=== PATIENT | male | born 1980 | race Caucasian/White ===

== ENCOUNTER 2024-05-12 09:26 | Emergency (ER) | payer OTHER, SELFPAY ==
[2024-05-12] VITALS (8 sets, daily range): BP systolic 131–152; BP diastolic 73–92; PULSE 61–76; RESP 10–17; TEMP 36.4–36.8; O2SAT 98–100
--- NOTE | ~2024-05-12 | XR_ITS ---
Clinical Indication: Chest pain PA and lateral views of the chest: Comparison: None Findings: Possible 1 cm nodule right midlung. Left lung clear. Cardiomediastinal silhouette is within normal limits. Bones and soft tissues are unremarkable. Impression: Possible 1 cm right midlung pulmonary nodule. Chest CT recommended to further evaluate. Reviewed, dictated and finalized at location . TYPEWRITER INSTALLER Impression: Possible 1 cm right midlung pulmonary nodule. Chest CT recommended to further e valuate.
--- NOTE | ~2024-05-12 | CT_ITS ---
Clinical Indication: Pulmonary nodule CT Scan of the Chest with Contrast: Technique: Contiguous sections were acquired throughout the chest after intravenous administration of 75 cc of Omnipaque 350. Dose reduction technique was used on this scan by utilizing automated exposu re control and iterative reconstruction technique. The dose-length product (DLP) was 395.35 mGy-cm. Findings: There is no evidence of any significant mediastinal, hilar or axillary lymphadenopathy. There is no f illing defect in the pulmonary arterial tree to suggest pulmonary embolus. There is no evidence of ao rtic dissection or aneurysm. There is no evidence of pleural or pericardial effusion. Large calcified right lower lobe granuloma present, which probably correlates with the radiographic f inding from earlier chest x-ray. No other pulmonary abnormalities seen. Images through the upper abdomen reveal no abnormalities. Impression: Calcified right lower lobe granuloma which correlates with plain radiographic finding. Reviewed, dictated and finalized at [facility]. STERED RADIATION THERAPIST Impression: Calcified right lower lobe granuloma which correlates with plain radiographic f inding.
--- NOTE | 2024-05-12 09:27 | ECG_ITS ---
Test Date: 2024-05-12 09:34:46 Measurements Intervals [place] Rate: 67 P: 56 NH: 140 QRS: 15 QRSD: 85 T: 22 QT: 369 QTc: 392 Interpretive Statements SINUS RHYTHM No previous ECG available for comparison Electronically Signed On 05-12-2024 22:46:56 FEEDER TENDER by Julian Hastings M.D.
[2024-05-12 10:00] LABS: Basophils Percent Auto 0.7 % (0.2-1.2); Eosinophils Absolute Auto 0.1 K/mm3 (0-0.3); Eosinophils Percent Auto 1.7 % (0-4.4); Hematocrit 47.1 % (42.0-52.0); Hemoglobin 16.4 g/dL (14.0-18.0); Immature Granulocyte Absolute 0.03 K/mm3 (0.00-0.031); Immature Granulocyte Percent A 0.5 % (0-0.5); Immature Platelet Fraction Pct 8.8 % (0.9-11.2); Lymphocytes Absolute Auto 1.89 K/mm3 (0.9-3.2); Lymphocytes Percent Auto 32.5 % (18.3-44.2); Mean Corpuscular HGB Conc 34.8 g/dl (32-36); Mean Corpuscular Hemoglobin 29.1 pg (26-34); Mean Corpuscular Volume 83.7 fl (80-100); Mean Platelet Volume 10.5 fl (7.4-10.4); Monocytes Absolute Auto 0.4 K/mm3 (0.1-0.6); Monocytes Percent Auto 7.4 % (2.6-8.5); Neutrophils Absolute Auto 3.3 K/mm3 (1.3-6.7); Neutrophils Percent Auto 57.2 % (45.5-73.1); Red Blood Count 5.63 M/mm3 (4.6-6.20); Red Cell Distribution Width 12.4 % (11.5-14.5); White Blood Count 5.8 K/mm3 (4.5-10.0)
[2024-05-12 10:09] LABS: Alanine Aminotransferase 32 U/L (6-50); Albumin Level 4.5 g/dL (3.5-5.1); Alkaline Phosphatase 53 U/L (38-126); Anion Gap 4 mmol/L (4-12); Aspartate Amino Transferase 24 U/L (17-59); Bilirubin,Total 0.5 mg/dL (0.2-1.3); Blood Urea Nitrogen 16 mg/dL (9-20); Calcium 9.3 mg/dL (8.4-10.2); Carbon Dioxide 26 mmol/L (22-30); Chloride 107 mmol/L (98-107); Estimated CRCL calculation 102 ml/min; Estimated Glomerular Filt Rate > 60; Glucose 116 mg/dL (65-110); Lipase 57 U/L (23-300); Potassium 4.2 mmol/L (3.4-5.0); Sodium 137 mmol/L (137-145)
[2024-05-12 10:14] LABS: INR 0.9; Prothrombin Time 12.9 Seconds (11.1-14.7)
[2024-05-12 10:15] LABS: Partial Thromboplastin Time 27.9 Seconds (22.3-36.8)
[2024-05-12 10:20] LABS: Troponin I < 0.012 ng/mL (0.000-0.034)
--- NOTE | 2024-05-12 11:13 | ED_ITS ---
HPI - Chest Pain General Chief Complaint: Chest Pain Stated Complaint: L chest discomfort Time Seen by Provider: 05/12/24 11:02 Source: patient Mode of arrival: ambulatory Limitations: no limitations History of Present Illness HPI narrative: Patient presents with left chest pain/discomfort that he noticed upon awakening at 5:00 a.m. this morning. He describes as a tightness that is 2 or 3/10 in severity and occurring intermittently without radiating although he was having some pain in his left armpit earlier this week. Denies any shortness of breath, nausea, vomiting, diaphoresis, lower extremity edema. He states this has never happened before and he does not have any underlying cardiac or respiratory conditions. Does not follow regularly with a document imaging manager. In terms of risk factors, denies any history of hypertension, hyperlipidemia, myocardial infarction, TIA/CVA or diabetes mellitus. He is a former smoker though quit 13 years ago at the of his daughter. He does have a family history as below. Related Data Allergies Allergy/AdvReac Type Severity Reaction Status Date / Time No Known Allergies Allergy Mild Verified 05/12/24 09:33 [facility] Family History Family History (Updated 05/13/24 @ 06:53 by Donna Jacques MD) Father Acute myocardial infarction Social History Social History Smoking status: Former smoker Living arrangements: with family Additional living arrangements comments: Spouse and teenage daughter Exam 2 Narrative: GENERAL: Well-appearing, well-nourished, and in no acute distress. HEAD: Normocephalic, atraumatic. EYES: Non injected, non icteric ENT: Nares clear, no rhinorrhea or epistaxis. NECK: Supple. CHEST: Speaking in full sentences. No respiratory distress. Lungs clear to auscultation bilaterally without appreciable wheezes or crackles HEART: Regular rate and rhythm. . ABDOMEN: Soft, nondistended. EXTREMITIES: Normal range of motion. No lower extremity edema. SKIN: Warm, dry, no rash. NEURO: No focal deficits. Alert and oriented x3. PSYCH: Normal mood and affect. Course Vital Signs Vital signs: Vital Signs Temperature 97.6 F 05/12/24 09:29 Pulse Rate 65 05/12/24 09:29 Respiratory Rate 15 05/12/24 09:29 Blood Pressure 150/92 H 05/12/24 09:29 Pulse Oximetry 100 05/12/24 09:29 Oxygen Delivery Room Air 05/12/24 09:29 Temperature 98.2 F 05/12/24 14:23 Pulse Rate 67 05/12/24 14:23 Respiratory Rate 17 05/12/24 14:23 Blood Pressure 152/73 H 05/12/24 14:23 Pulse Oximetry 100 05/12/24 14:23 Oxygen Delivery Room Air 05/12/24 09:29 MDM - Chest Pain MDM Narrative Medical decision making narrative: Patient presents with left sided chest pain/discomfort occurring upon awakening at 5:00 a.m. this morning. Describes it as a tightness. No underlying cardiac or respiratory conditions and no associated symptoms on review of symptoms other than he was having some left armpit pain earlier this week. In the emergency department he is afebrile with vital signs notable for mild hypertension. HEART SCORE History 2 highly suspicious 1 moderately suspicious 0 slightly suspicious History score [address] depression/elevation not due to LBBB, LVH, or digoxin [address] depression but LBBB, LVH, nonspecific repolarization changes 0 normal ECG score 0 Age 2 >/= 65 1 45-64 0 <45 Age score 0 Risk factors (HTN, hypercholesterolemia, DM, obesity with BMI >30, current smoker or cessation </=3mo), positive fam hx with parent or sibling with CVD before age 65, atherosclerotic disease (prior RI, PCI/CABG, CVA/TIA, or peripheral arterial disease) 2 >/= 3 risk factors or history of atherosclerotic dz 1 - 1-2 risk factors 0 no known risk factors Risk factor score 2 (obesity and fam Hx) Initial Troponin 2 >3 times normal limit 1 1-3 times normal limit 0 less than or equal to normal limit Troponin score 0 Total HEART Score 3 with 2nd negative troponin. Patient is suitable for outpatient follow-up we discussed that his negative workup does not mean that there is nothing wrong but rather that he should follow-up as indicated. CT scan shows a calcified granuloma in the right lower lung. Discussed this with patient. Discharged in stable condition with Rx for acetaminophen and NSAID. Provided referral contact information for a PCP (though patient later states he has access to a physician through his work) and document imaging manager. Differential Diagnosis Differential diagnosis: Likely stable angina, unstable angina pectoris, atypical chest pain, st elevation myocardial infarction, chest pain, biliary colic and other (musculoskeletal pain) Lab Data Attestation: I reviewed the patient's lab results. 05/12/24 09:52 05/12/24 09:52 Labs: Lab Results 05/12/24 05/12/24 Range/Units 09:52 12:20 WBC 5.8 (4.5-10.0) K/mm3 RBC 5.63 (4.6-6.20) M/mm3 Hgb 16.4 (14.0-18.0) g/dL Hct 47.1 (42.0-52.0) % MCV 83.7 (80-100) fl MCH 29.1 (26-34) pg MCHC 34.8 (32-36) g/dl RDW 12.4 (11.5-14.5) % Plt Count TNP MPV 10.5 H (7.4-10.4) fl Immature Gran % (Auto) 0.5 (0-0.5) % Neut % (Auto) 57.2 (45.5-73.1) % Lymph % (Auto) 32.5 (18.3-44.2) % [place] % (Auto) 7.4 (2.6-8.5) % Eos % (Auto) 1.7 (0-4.4) % Baso % (Auto) 0.7 (0.2-1.2) % Lymph # (Auto) 1.89 (0.9-3.2) K/mm3 [place] # (Auto) 0.4 (0.1-0.6) K/mm3 Eos # (Auto) 0.1 (0-0.3) K/mm3 Baso # (Auto) 0.0 (0.0-0.1) K/mm3 Abs Immat Gran (auto) 0.03 (0.00-0.031) K/mm3 Absolute Neuts (auto) 3.3 (1.3-6.7) K/mm3 Absolute Nucleated RBC 0.000 (0.0-0.012) K/mm3 Nucleated RBC % 0.0 (0.0-0.2) % % Immature Plt Fraction 8.8 (0.9-11.2) % PT 12.9 (11.1-14.7) Seconds INR 0.9 APTT 27.9 (22.3-36.8) Seconds D-Dimer < 0.27 (<0.48) ug/mL Sodium 137 (137-145) mmol/L Potassium 4.2 (3.4-5.0) mmol/L Chloride 107 (98-107) mmol/L Carbon Dioxide 26 (22-30) mmol/L Anion Gap 4 (4-12) mmol/L BUN 16 (9-20) mg/dL Creatinine 0.90 (0.7-1.3) mg/dL Estim Creat Clear Calc 102 ml/min Estimated GFR > 60 (59 - ) Glucose 116 H (65-110) mg/dL Calcium 9.3 (8.4-10.2) mg/dL Total Bilirubin 0.5 (0.2-1.3) mg/dL AST 24 (17-59) U/L ALT 32 (6-50) U/L Alkaline Phosphatase 53 (38-126) U/L Troponin I < 0.012 < 0.012 (0.000-0.034) ng/mL Total Protein 8.0 (6.3-8.2) g/dL Albumin 4.5 (3.5-5.1) g/dL Lipase 57 (23-300) U/L Imaging Data Radiologist's impression: Possible 1 cm right midlung pulmonary nodule. Chest CT recommended to further evaluate. Calcified right lower lobe granuloma which correlates with plain radiographic finding. ECG Data EKG #1: Attestation: I personally reviewed and interpreted this ECG as follows: ECG completion date: 05/12/24 ECG completion time: 09:34 Interpretation: Normal sinus rhythm at a rate of 67 beats per minute. FL interval 140. QRS 85. QT/QTC 369/385. Good R-wave progression across the precordial leads. T-wave inversion isolated to lead 3 but otherwise upright in normal in contiguous inferior leads 2 and AVF and no other T-wave inversions. Normal axis. Normal ECG. Discharge Plan Discharge Clinical Impression: Chest pain in adult, Calcified granuloma of lung Patient Disposition: Home, Self-Care Condition: Stable Instructions: Antibiotic Form, Chest Pain (ED) Additional Instructions: As we discussed, no clear etiology for your symptoms today however you are otherwise low risk and thus the recommendation is to proceed with outpatient workup. Follow-up with your primary care physician for referral to a document imaging manager or alternatively, the name of 1 is provided below. If you do not have a primary care physician the name of doctors provided below. Return to the emergency department any new or worsening symptoms. Acetaminophen/Tylenol (maximum 4000 mg per day) is safe to take with NSAIDs (ibuprofen/Motrin) for pain relief. The nodule that we discussed that was seen on your x-ray appears to be a calcified granuloma on CT imaging. Patient Language: Polish Prescriptions: New ibuprofen 600 mg tablet 600 mg PO TID PRN (Reason: pain) Qty: 20 0RF acetaminophen 500 mg capsule 1,000 mg PO Q6H PRN (Reason: pain) Qty: 20 0RF Follow-up/Referrals: Avril Williamson MD [Physician] - (document imaging manager) PHYSICIAN,SPOOL CARRIER [Non-Staff] - Tyrell Morris MD [Physician] - (primary care physician) Stand Alone Forms: Work/School Release IP Time of Disposition: 13:55
--- NOTE | 2024-05-12 12:15 | ECG_ITS ---
Test Date: 2024-05-12 12:18:55 Measurements Intervals [place] Rate: 67 P: 58 FL: 143 QRS: 23 QRSD: 79 T: 29 QT: 377 QTc: 400 Interpretive Statements SINUS RHYTHM WITH SINUS ARRHYTHMIA Compared to ECG 05/12/2024 09:34:46 No significant changes Electronically Signed On 05-12-2024 22:43:59 LITHOGRAPHIC GENERAL WORKER by Julian Hastings M.D.
[2024-05-12 12:23] LABS: D Dimer < 0.27 ug/mL (<0.48)
[2024-05-12 12:51] LABS: Troponin I < 0.012 ng/mL (0.000-0.034)
--- OUTSIDE RECORDS SUMMARY | 2024-05-19 16:55 | XMS_ITS | Encounter Summary ---
Author Organization [facility] Address [address] [place] [address] Care Team Providers Care Biztalk Administrator Name Role Phone Katerina Eng MD Primary Care Provider [phone] Encounter Details Date Type Department Care Team (Late st Contact Info) Description 05/14/2023 External Device Data [place] ABSTRACTION Provider, Abstract NO ADDRESS ON FILE Social History Tobacco Use Types Packs/Day Years Used Date Smoking Tobacco: Never Smokeless Tobacco: Never Alcohol Use Standard Drinks/Week Comments Yes 3 (1 standard drink = 0.6 oz pur e alcohol) occasional Sex and Gender Information Value Date Recorded Sex Assigned at Not on file Gender Identity Not on file Sexual Orientation Not on file documented as of this encounter Plan of Treatment Not on file documented as of this encounter Visit Diagnoses Not on filedocumented in this encounter Care Teams Biztalk Administrator Relationship Specialty Start Date End Date Katerina Eng MD [address] [place] [phone] PCP - General Family Practice 08/28/22 documented as of this encounter
--- OUTSIDE RECORDS SUMMARY | 2024-05-19 16:55 | XMS_ITS | Encounter Summary ---
Author Organization [facility] Address [address] [place] [address] Care Team Providers Care Political Geographer Name Role Phone Katerina Eng MD Primary Care Provider [phone] Encounter Details Date Type Department Care Team (Late st Contact Info) Description 07/01/2023 External Device Data STL ABSTRACTION Provider, Abstract [...] on filedocumented in this encounter Care Teams Political Geographer Relationship Specialty Start Date End Date Katerina Eng MD [address] [place] [phone] PCP - General Family Practice 08/28/22 documented as of this encounter
--- OUTSIDE RECORDS SUMMARY | 2024-05-19 16:55 | XMS_ITS | Encounter Summary ---
Author Organization [facility] Address [address] [place] [address] Care Team Providers Care Circuits Engineer Name Role Phone Katerina Eng MD Primary Care Provider [phone] Encounter Details Date Type Department Care Team (Late st Contact Info) Description 02/11/2024 External Device Data STL ABSTRACTION Provider, Abstract [...] on filedocumented in this encounter Care Teams Circuits Engineer Relationship Specialty Start Date End Date Katerina Eng MD [address] [place] [phone] PCP - General Family Practice 08/28/22 documented as of this encounter
--- OUTSIDE RECORDS SUMMARY | 2024-05-19 16:55 | XMS_ITS | Encounter Summary ---
Author Organization [facility] Address [address] [place] [address] Care Team Providers Care Seamer Panty Hose Name Role Phone Katerina Eng MD Primary Care Provider [phone] Encounter Details Date Type Department Care Team (Late st Contact Info) Description 01/21/2024 External Device Data STL ABSTRACTION Provider, Abstract [...] on filedocumented in this encounter Care Teams Seamer Panty Hose Relationship Specialty Start Date End Date Katerina Eng MD [address] [place] [phone] PCP - General Family Practice 08/28/22 documented as of this encounter
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
--- OUTSIDE RECORDS SUMMARY | 2024-05-19 16:55 | XMS_ITS | Clinical Summary ---
Author Organization [facility] [place] Address [address] [place] [address] Care Team Providers Care Cycling Instructor Name Role Phone Katerina Eng MD Primary Care Provider [phone] Allergies No known active allergies Medications Medication Sig Dispensed Refills Start Date End Date Status famotidine (PEPCID) 20 mg tablet Take 20 mg by mouth 1 time daily as needed. Active Active Problems No known active problems Family History Medical History Relation Name Comments No Known Problems Daughter Diabetes Father Dad Heart Disease Father Dad Kidney Disease Father Dad Heart Disease Maternal Grandfather Breast Cancer Maternal Grandmother Mothers Mom No Known Problems Mother No Known Problems Paternal Grandfather No Known Problems Paternal Grandmother No Known Problems Sister 1 Diabetes Sister 2 Relation Name Status Comments Daughter Alive Father Dad Alive Maternal Grandfather Maternal Grandmother Mothers Mom Mother Alive Paternal Grandfather Alive Paternal Grandmother Alive Sister 1 Alive Sister 2 Alive Social History Tobacco Use Types Packs/Day Years Used Date Smoking Tobacco: Never Smokeless Tobacco: Never Tobacco Cessation:Counseling Given: Not Answered Alcohol Use Standard Drinks/Week Comments Yes 3 (1 standard drink = 0.6 oz pur e alcohol) occasional Sex and Gender Information Value Date Recorded Sex Assigned at Not on file Gender Identity Not on file Sexual Orientation Not on file Last Filed Vital Signs Vital Sign Reading Time Taken Comments Blood Pressure 108/82 07/10/2023 10:38 AM MANAGER FIELD SALES Pulse 70 07/10/2023 10:38 AM MANAGER FIELD SALES Temperature 36.6 ??C (97.9 ??F) 07/10/2023 10:[address] Respiratory Rate 18 07/10/2023 10:38 AM MANAGER FIELD SALES Oxygen Saturation 98% 07/10/2023 10:38 AM MANAGER FIELD SALES Inhaled Oxygen Concentration - - Weight 100.2 kg (221 lb) 07/10/2023 10:38 AM MANAGER FIELD SALES Height 165.1 cm (5' 5 ) 07/10/2023 10:38 AM MANAGER FIELD SALES Body Mass Index 36.78 07/10/2023 10:38 AM MANAGER FIELD SALES Plan of Treatment Health Maintenance Due Date Last Done Comments DTAP/TDAP/TD VACCINES (1 - Tdap) 2001 HEPATITIS B VACCINES (1 of 3 - 19+ 3-dose series) 2001 Pre-Diabetes and Diabetes Screening 11/03/2023 11/02/2020, 01/01/2020 INFLUENZA VACCINE (#1) 2023 HPV VACCINES Aged Out No longer eligi ble based on patient's age to complete this topic PNEUMOCOCCAL VACCINE 0-64 YEARS Aged Out No longer eligible b ased on patient's age to complete this topic Procedures Procedure Name Priority Date/Time Associated Diagnosis Comments HEMOGLOBIN A1C Routine 11/02/2020 8:50 AM CDT Screening for condition from Last 3 Months or Most Recently Relevant to Health Maintenance Results * HEMOGLOBIN A1C (11/02/2020 8:50 AM CDT) HEMOGLOBIN A1C 4.8 <5.7 % of total Hgb [facility] Comment: For the purpose of screening for the presence of diabetes: <5.7% ? Consistent with the absence of diabetes 5.7-6.4% ?Consistent with increased risk for diabetes ?(prediabetes) > or =6.5% ??Consistent with diabetes This assay result is consistent with a decreased risk of diabetes. Currently, no consensus exists regarding use of hemoglobin A1c for diagnosis of diabetes in children. According to [place] Diabetes Association (ADA) guidelines, hemoglobin A1c <7.0% represents optimal control in non- diabetic patients. Different metrics may apply to specific patient populations. Standards of Medical Care in Diabetes(ADA). Test Performed at: [facility] [address] [place], [place] ??[address] Davian Vickers D.O., MPH Blood 11/02/2020 8:50 AM CDT Jt Vazquez MD CHEMISTRY ORDERABLES [facility] [address] [place] [address] from Last 3 Months or Most Recently Relevant to Health Maintenance Care Teams Cycling Instructor Relationship Specialty Start Date End Date Katerina Eng MD [address] [place] [phone] PCP - General Family Practice 08/28/22
--- OUTSIDE RECORDS SUMMARY | 2024-05-19 16:55 | XMS_ITS | Encounter Summary ---
Author Organization [facility] Address [address] [place] [address] Care Team Providers Care Drop Pit Worker Name Role Phone Katerina Eng MD Primary Care Provider Encounter Details Date Type Department Care Team (Late st Contact Info) Description 02/04/2024 External Device Data STL ABSTRACTION Provider, Abstract [...] on filedocumented in this encounter Care Teams Drop Pit Worker Relationship Specialty Start Date End Date Katerina Eng MD [address] [place] [phone] PCP - General Family Practice 08/28/22 documented as of this encounter
--- OUTSIDE RECORDS SUMMARY | 2024-05-19 16:55 | XMS_ITS | Encounter Summary ---
Author Organization [facility] Address [address] [place] [address] Care Team Providers Care Air Hole Driller Name Role Phone Katerina Eng MD Primary Care Provider [phone] Encounter Details Date Type Department Care Team (Late st Contact Info) Description 11/26/2023 External Device Data STL ABSTRACTION Provider, Abstract [...] on filedocumented in this encounter Care Teams Air Hole Driller Relationship Specialty Start Date End Date Katerina Eng MD [address] [place] [phone] PCP - General Family Practice 08/28/22 documented as of this encounter
--- OUTSIDE RECORDS SUMMARY | 2024-05-19 16:55 | XMS_ITS | Encounter Summary ---
Author Organization [facility] Address [address] [place] [address] Care Team Providers Care Senior Cost Accountant Name Role Phone Katerina Eng MD Primary Care Provider [phone] Reason for Visit * Reason Comments Labs Only Encounter Details Date Type Department Care Team (Latest Contact Info) Description 06/11/2023 8:20 AM HOME THEATRE TECHNICIAN Clinical Support [facility] at [facility] [employer]ANK[employer] [place] [address] [place] [address] Hypertriglyceridemia ; Elevated TSH Social History Tobacco Use Types Packs/Day Years Used Date Smoking Tobacco: Never Smokeless Tobacco: Never Alcohol Use Standard Drinks/Week Comments Yes 3 (1 standard drink = 0.6 oz pur e alcohol) occasional Sex and Gender Information Value Date Recorded Sex Assigned at Not on file Gender Identity Not on file Sexual Orientation Not on file documented as of this encounter Progress Notes * Tamie Enrique RN - 06/11/2023 8:52 AM CST Left hand successful, 1 stick. Pt tolerated well. THEATRE TECHNICIAN * Shwetha Hui - 06/11/2023 8:33 AM CST Pt presents for labs, Left AC unsuccessful 1 stick, Right AC unsuccessful 1 stick. Pt tolerated well. THEATRE TECHNICIAN documented in this encounter Plan of Treatment Not on file documented as of this encounter Procedures Procedure Name Priority Date/Time Associated Diagnosis Comments TSH Routine 06/11/2023 8:18 AM HOME THEATRE TECHNICIAN T4 FREE Routine 06/11/2023 8:18 AM HOME THEATRE TECHNICIAN Elevated TSH LIPID PANEL Routine 06/11/2023 8:18 AM HOME THEATRE TECHNICIAN Hypertriglyceridemia documented in this encounter Results * TSH (06/11/2023 8:18 AM HOME THEATRE TECHNICIAN) Pathologist [facility] TSH 2.14 0.40 - 4.50 mIU/L [facility] Comment: Test Performed at: [facility] [address] [place], [place] ??[phone] Nicolas Perla MD 06/11/2023 8:18 AM HOME THEATRE TECHNICIAN 06/11/2023 10:36 PM HOME THEATRE TECHNICIAN Jennifer Ba [facility] CHEMISTRY ORDERABLES Performing Organization Address City/[facility]/ZIP Co de Phone Number [facility] [phone] [facility] [address] [place] [phone] * T4 FREE (06/11/2023 8:18 AM HOME THEATRE TECHNICIAN) Pathologist [facility] T4 FREE 1.1 0.8 - 1.8 ng/dL [facility] Comment: Test Performed at: [facility] [address] [place] [address] ??[phone] Nicolas Perla MD Blood 06/11/2023 8:18 AM HOME THEATRE TECHNICIAN 06/11/2023 10:36 PM HOME THEATRE TECHNICIAN Jennifer Ba [facility] CHEMISTRY ORDERABLES [facility] [phone] [facility] [address] [place] [phone] * LIPID PANEL (06/11/2023 8:18 AM HOME THEATRE TECHNICIAN) Pathologist [facility] CHOLESTEROL 152 <200 mg/dL [facility] HDL 41 > OR = 40 mg/dL [facility] TRIGLYCERIDE 120 <150 mg/dL [facility] LDL CALCULATED 89 mg/dL (calc) [facility] Comment: Reference range: <100 Desirable range <100 mg/dL for primary prevention; ?? <70 mg/dL for patients with CHD or diabetic patients with > or = 2 CHD risk factors. LDL-C is now calculated using the Krissy calculation, which is a validated novel method providing better accuracy than the Friedewald equation in the estimation of LDL-C. Vazquez SS et al. JAIME. 2013;310(19): 4842-4143 (http://education.BMRW & Associates/faq/BTA854) CHOL/HDL RATIO 3.7 <5.0 (calc) [facility] TOTAL NON-HDL CHOL(LDL+VLDL) 111 <130 mg/dL (calc) [facility] Comment: For patients with diabetes plus 1 major ASCVD risk factor, treating to a non-HDL-C goal of <100 mg/dL (LDL-C of <70 mg/dL) is considered a therapeutic option. Test Performed at: [facility] [place] [address] [place], [place] ??[phone] Nicolas Perla Blood 06/11/2023 8:18 AM HOME THEATRE TECHNICIAN 06/11/2023 10:35 PM HOME THEATRE TECHNICIAN Jennifer Ba STRETCH BOX TENDER CHEMISTRY ORDERABLES [facility] [phone] [place] [address] [place] [phone] documented in this encounter Visit Diagnoses Diagnosis Hypertriglyceridemia Pure hyperglyceridemia Elevated TSH Other abnormal blood chemistry documented in this encounter Care Teams Senior Cost Accountant Relationship Specialty Start Date End Date Katerina Eng MD [address] [place] [address] PCP - General Family Practice 08/28/22 documented as of this encounter
--- OUTSIDE RECORDS SUMMARY | 2024-05-19 16:55 | XMS_ITS | Encounter Summary ---
Author Organization [facility] Address [address] [place] [address] Care Team Providers Care Press Technician Name Role Phone Katerina Eng MD Primary Care Provider [phone] Encounter Details Date Type Department Care Team (Late st Contact Info) Description 01/14/2024 External Device Data STL ABSTRACTION Provider, Abstract [...] on filedocumented in this encounter Care Teams Press Technician Relationship Specialty Start Date End Date Katerina Eng MD [address] [place] [phone] PCP - General Family Practice 08/28/22 documented as of this encounter
--- OUTSIDE RECORDS SUMMARY | 2024-05-19 16:55 | XMS_ITS | Encounter Summary ---
Author Organization [facility] Address [address] [place] [address] Care Team Providers Care Senior It Recruiter Name Role Phone Katerina Eng MD Primary Care Provider [phone] Encounter Details Date Type Department Care Team (Late st Contact Info) Description 06/28/2023 External Device Data STL ABSTRACTION Provider, Abstract [...] on filedocumented in this encounter Care Teams Senior It Recruiter Relationship Specialty Start Date End Date Katerina Eng MD [address] [place] [phone] PCP - General Family Practice 08/28/22 documented as of this encounter
--- OUTSIDE RECORDS SUMMARY | 2024-05-19 16:55 | XMS_ITS | Encounter Summary ---
Author Organization [facility] Address [address] [place] [phone] Care Team Providers Care Receipt And Report Clerk Name Role Phone Katerina Eng MD Primary Care Provider Reason for Visit * Reason Onset Date Comments Labs results and interpretations 06/19/2023 Encounter Details Date Type Department Care Team (Late st Contact Info) Description 06/19/[address] [address] Jennifer Ba FNP [address] [place] [address] Labs results and interpretations Social History Tobacco Use Types Packs/Day Years [...] on filedocumented in this encounter Care Teams Receipt And Report Clerk Relationship Specialty Start Date End Date Katerina Eng MD [address] [place] [address] PCP - General Family Practice 08/28/22 documented as of this encounter
--- OUTSIDE RECORDS SUMMARY | 2024-05-19 16:55 | XMS_ITS | Encounter Summary ---
Author Organization [facility] Address [address] [place] [address] Care Team Providers Care Retanner Name Role Phone Katerina Eng MD Primary Care Provider [phone] Reason for Visit * Reason Comments Labs Only Encounter Details Date Type Department Care Team (Latest Contact Info) Description 08/29/2023 10:00 AM CDT Clinical Support [facility] [place] [address] [place] [address] Screening for condition (Primary Dx) Social History Tobacco Use Types [...] as of this encounter Progress Notes * Bety Lemons - 08/29/2023 9:39 AM CDT Patient presents for labs only, drawn from left hand, one stick. Patient tolerated well. documented in this encounter Miscellaneous Notes * Result Encounter Note - Katerina Eng MD - 09/02/2023 12:00 PM CDT Metabolic panel is normal. documented in this encounter Plan of Treatment Not on file documented as of this encounter Procedures Procedure Name Priority Date/Time Associated Diagnosis Comments COMPREHENSIVE METABOLIC PANEL Routine 08/29/2023 9:30 AM CDT Screening for condition documented in this encounter Results * COMPREHENSIVE METABOLIC PANEL (08/29/2023 9:30 AM CDT) GLUCOSE 90 65 - 99 mg/dL [facility] Comment: ? Fasting reference interval BUN 14 7 - 25 mg/dL [facility] CREATININE 0.99 0.60 - 1.29 mg/dL [facility] GFR 98 > OR = 60 mL/min/1. 73m2 [facility] BUN/CREAT RATIO SEE NOTE: (calc) [facility] Comment: ?? Not Reported: BUN and Creatinine are within ?? reference range. ? SODIUM 137 135 - 146 mmol/L [facility] POTASSIUM 4.0 3.5 - 5.3 mmol/L [facility] CHLORIDE 103 98 - 110 mmol/L [facility] CO2 26 20 - 32 mmol/L [facility] CALCIUM 9.7 8.6 - 10.3 mg/dL [facility] TOTAL PROTEIN 7.4 6.1 - 8.1 g/dL [facility] ALBUMIN 4.7 3.6 - 5.1 g/dL [facility] GLOBULIN 2.7 1.9 - 3.7 g/dL (calc) [facility] ALBUMIN/GLOBULIN RATIO 1.7 1.0 - 2.5 (calc) [facility] BILIRUBIN TOTAL 0.8 0.2 - 1.2 mg/dL [facility] ALKALINE PHOSPHATASE 55 36 - 130 U/L [facility] AST 17 10 - 40 U/L [facility] ALT 21 9 - 46 U/L [facility] Comment: Test Performed at: [facility] [address] [place] ??[phone] Nicolas Perla Blood 08/29/2023 9:30 AM CDT 08/30/2023 12:27 PM CDT Katerina Poelker MD CHEMISTRY ORDERABLES [employer] [facility] [phone] [facility] [address] [place] [address] documented in this encounter Visit Diagnoses Diagnosis Screening for condition- Primary Screening for unspecified condition documented in this encounter Care Teams Retanner Relationship Specialty Start Date End Date Katerina Eng MD [address] [place] [address] PCP - General Family Practice 08/28/22 documented as of this encounter
--- OUTSIDE RECORDS SUMMARY | 2024-05-19 16:56 | XMS_ITS | Encounter Summary ---
Author Organization [facility] Address [address] [place] [address] Care Team Providers Care Optician Name Role Phone Unavailable Primary Care Provider Unavailabl e Reason for Visit * Reason Comments Labs Only Encounter Details Date Type Department Care Team (Latest Contact Info) Description 08/25/2021 7:45 AM CDT Clinical Support [facility] at [employer] [facility] [place] [address] [place] [address] Encounter for screening, unspecified (Primary Dx) Social History Tobacco Use Types [...] Sign Reading Time Taken Comments Blood Pressure 108/66 08/25/2021 7:40 AM CDT Pulse - - Temperature - - Respiratory Rate - - Oxygen Saturation - - Inhaled Oxygen Concentration - - Weight 101.2 kg (223 lb) 08/25/2021 7:40 AM CDT Height 165.1 cm (5' 5 ) 08/25/2021 7:40 AM CDT Body Mass Index 37.11 08/25/2021 7:40 AM CDT documented in this encounter Progress Notes * Thania Corley - 08/25/2021 7:44 AM CDT Pt came in for annual wellness screening finger stick, left hand 2nd digit, pt tolerate well. CHELI Toure documented in this encounter Plan of Treatment Not on file documented as of this encounter Procedures Procedure Name Priority Date/Time Associated Diagnosis Comments POC LIPID PANEL AND GLUCOSE Routine 08/25/2021 7:44 AM CDT documented in this encounter Results * (ABNORMAL) POC LIPID PANEL AND GLUCOSE (08/25/2021 7:44 AM CDT) CHOLESTEROL POC 107 200 mg/dL [facility] HDL POC 30(A) 40 - 59 mg/dL [facility] [place] LDL CALCULATED POC 42 100 mg/dL [facility] TRIGLYCERIDES POC 171(A) 150 mg/dL COUNT INCLUDES [facility] NON-HDL CHOLESTEROL POC 0 130 mg/dL [facility] [place] CHOL/HDL RATIO POC 3.5 [facility] GLUCOSE POC 42(A) 65 - 99 mg/dL [facility] Blood 08/25/2021 7:44 AM CDT Abstract Provider POINT OF CARE TESTIN G COM [facility] CLIA# [id number] [address] [place] [address] documented in this encounter Visit Diagnoses Diagnosis Encounter for screening, unspecified- Primary documented in this encounter
--- OUTSIDE RECORDS SUMMARY | 2024-05-19 16:56 | XMS_ITS | Encounter Summary ---
Author Organization [facility] Address [address] [facility] Attn: Epic Prelude ADT [place] [phone] Care Team Providers Care Head Stock Operator Name Role Phone Jt Vazquez MD Primary Care Provider Unava ilable Encounter Details Date Type Department Care Team (Latest Contact Info) Description 07/17/2019 Travel Social History Tobacco Use Types Packs/Day Years Used Date Smoking Tobacco: Never Smokeless Tobacco: Never Alcohol Use Standard Drinks/Week Comments Yes 0 (1 standard drink = 0.6 oz pur e alcohol) occasional Sex and Gender Information Value Date Recorded Sex Assigned at Not on file Gender Identity Not on file Sexual Orientation Not on file documented as of this encounter Plan of Treatment Not on file documented as of this encounter Visit Diagnoses Not on filedocumented in this encounter Care Teams Head Stock Operator Relationship Specialty Start Date End Date Jt Vazquez MD PCP - General Family Practice 12/20/17 08/20/21 documented as of this encounter
--- OUTSIDE RECORDS SUMMARY | 2024-05-19 16:56 | XMS_ITS | Encounter Summary ---
Author Organization [facility] Address [address] [facility] Attn: Epic Prelude ADT [place] [address] Care Team Providers Care Professional Driver Name Role Phone Jt Vazquez MD Primary Care Provider Unava ilable Encounter Details Date Type Department Care Team (Latest Contact Info) Description 12/31/2019 Travel Social History Tobacco Use Types Packs/Day Years Used Date Smoking Tobacco: Never Smokeless Tobacco: Never Alcohol Use Standard Drinks/Week Comments Yes 0 (1 standard drink = 0.6 oz pur e alcohol) occasional Sex and Gender Information Value Date Recorded Sex Assigned at Not on file Gender Identity Not on file Sexual Orientation Not on file COVID-19 Exposure Response Date Recorded In the last month, have you been in contact with someone who was confirmed or suspected to have Coronavirus / COVID-19? No / Unsure 12/31/2019 8:40 AM CDT documented as of this encounter Plan of Treatment Not on file documented as of this encounter Visit Diagnoses Not on filedocumented in this encounter Care Teams Professional Driver Relationship Specialty Start Date End Date Jt Vazquez MD PCP - General Family Practice 12/20/17 08/20/21 documented as of this encounter
--- OUTSIDE RECORDS SUMMARY | 2024-05-19 16:56 | XMS_ITS | Encounter Summary ---
Author Organization [facility] Address [address] [place] [address] Care Team Providers Care Case Briefer Name Role Phone Katerina Eng MD Primary Care Provider [phone] Reason for Visit * Reason Comments Follow up wellness, abnormal lipid and T SH Encounter Details Date Type Department Care Team (Late st Contact Info) Description 09/05/2022 10:00 AM CDT Telephone Check Up [facility] at [facility] [employer] [place] [address] [place] [phone] Jennifer Ba FNP [address] [place] [address] Elevated TSH (Primary Dx); Hypertriglyceridemi a; Low HDL (under 40) Social History Tobacco Use Types Packs/Day Years [...] Sign Reading Time Taken Comments Blood Pressure - - Pulse - - Temperature - - Respiratory Rate - - Oxygen Saturation - - Inhaled Oxygen Concentration - - Weight 99.8 kg (220 lb) 09/05/2022 10:05 AM CDT Height 165.1 cm (5' 5 ) 09/05/2022 10:05 AM CDT Body Mass Index 36.61 09/05/2022 10:05 AM CDT documented in this encounter Progress Notes * Jennifer Ba FNP - 09/11/2022 11:28 AM CDT HISTORY OF PRESENT ILLNESS Marcelo Sampson, a 42 y.o. male presents with a Chief Complaint of Follow up wellness, abnormal lipidand TSH Subjective HPI Lab Results Component Value Date/Time CHOLTOT 144 08/28/2022 07:46 AM HDL 34 (L) 08/28/2022 07:46 AM LDLCALC 74 08/28/2022 07:46 AM TRIGLYCERIDE 270 (H) 08/28/2022 07:46 AM Denies family h/o CVD. He does have a h/o high triglyceride level. Increased since last labs. Denies change in diet. Drinks roughly 2-3 beers per week. Lab Results Component Value Date/Time TSH 4.51 (H) 08/28/2022 07:46 AM No prior h/o thyroid disease. Denies family h/o thyroid. Last TSH (3 years prior) was normal. Lab Results Component Value Date/Time WBC 5.2 08/28/2022 07:46 AM HGB 15.3 08/28/2022 07:46 AM HCT 45.7 08/28/2022 07:46 AM PLT 217 08/28/2022 07:46 AM MCV 87.5 08/28/2022 07:46 AM Lab Results Component Value Date/Time NA 139 08/28/2022 07:46 AM K 4.6 08/28/2022 07:46 AM CL 104 08/28/2022 07:46 AM CO2 28 08/28/2022 07:46 AM CA 9.3 08/28/2022 07:46 AM BUN 14 08/28/2022 07:46 AM CREAT 0.98 08/28/2022 07:46 AM GLUCOSE 91 08/28/2022 07:46 AM TOTALPROTEIN 7.0 08/28/2022 07:46 AM ALBUMIN 4.4 08/28/2022 07:46 AM BILITOTAL 0.6 08/28/2022 07:46 AM ALKPHOS 57 08/28/2022 07:46 AM AST 20 08/28/2022 07:46 AM ALT 24 08/28/2022 07:46 AM BCRATIO NOT APPLICABLE 08/28/2022 07:46 AM Social History Tobacco Use Smoking Status Never Smokeless Tobacco Never Social History Substance and Sexual Activity Alcohol Use Yes Alcohol/week: 3.0 standard drinks Types: 3 Cans of beer per week Comment: occasional REVIEW OF SYSTEMS Review of Systems Constitutional: Negative. Negative for activity change, fatigue and unexpected weight change. Respiratory: Negative. Cardiovascular: Negative. Negative for palpitations. Gastrointestinal: Negative. Negative for constipation. Endocrine: Negative. Negative for cold intolerance and heat intolerance. Skin: Negative. Neurological: Negative. Psychiatric/Behavioral: Negative. Negative for dysphoric mood and sleep disturbance. The patient isnot nervous/anxious. Objective PHYSICAL EXAM Ht 5' 5 (1.651 m) Wt 99.8 kg (220 lb) BMI 36.61 kg/m?? BP Readings from Last 3 Encounters: 08/25/21 108/66 11/02/20 122/86 08/08/20 128/88 Physical Exam Pulmonary: Effort: Pulmonary effort is normal. Neurological: Mental Status: He is alert. Psychiatric: Mood and Affect: Mood normal. Behavior: Behavior normal. Assessment ASSESSMENT and PLAN: ICD-10-CM ICD-9-CM 1. Elevated TSH R79.89 794.5 TSH REFLEXIVE T4 FREE - Discussed diagnosis of subclinical hypothyroidism with mild elevation TSH and no symptoms. Discussed indications for further studies, monitoring and when to start treatment. Agrees to checkTSH and T4 level in 6 weeks and treat accordingly. Patient will need a follow up exam in-clinic if maintains abnormal. 2. Hypertriglyceridemia E78.1 272.1 LIPID PANEL- Discussed risk associated with high triglyceride and low HDL. We discussed indications to start medicine. Patient prefers lifestyle modification and recheck with follow up discussion if medication is still indicated. 3. Low HDL (under 40) E78.6 272.5 Discussed dietary modification and physical activity. documented in this encounter Miscellaneous Notes * Patient Instructions - Jennifer Ba FNP - 09/11/2022 11:42 AM CDT Please schedule to recheck labs in 6 weeks. If thyroid level remains abnormal, we can discuss getting you in for a physical exam and also when treatment or referral to endocrinology is indicated. As discussed, we will also recheck your triglyceride level to see if dietary modification and physical activity alone are improving. Per our discussion, increasing high fiber (especially soluble fiber) whole plant based foods and getting regular physical activity will improve cholesterol levels. Foods include oats, barley and other whole grains, beans/legumes, nuts, vegetable oils/olive oil (instead of butter), apples, grapes, strawberries, citrus fruits, soybeans/tofu, omega 3 supplement derived from plant algae (not fish). Also, you may consider Niacin supplement (vitamin B3) 500 mg daily. Limit alcohol consumption to <2 drinks per day. Goal is triglyceride level <150. Medications (statins) are considered for levels >200. documented in this encounter Plan of Treatment Scheduled Orders Name Type Priority Associated Diagnoses Orde r Schedule TSH REFLEXIVE Lab Routine Elevated TSH Expected: 10/12/2022, Expires: 09/05/2023 documented as of this encounter Results * LIPID PANEL (06/11/2023 8:18 AM CONDUCTOR PULLMAN) CHOLESTEROL 152 <200 mg/dL [facility] HDL 41 > OR = 40 mg/dL [facility] TRIGLYCERIDE 120 <150 mg/dL [facility] LDL CALCULATED 89 mg/dL (calc) [facility] Comment: Reference range: <100 Desirable range <100 mg/dL for primary prevention; ?? <70 mg/dL for patients with CHD or diabetic patients with > or = 2 CHD risk factors. LDL-C is now calculated using the Vazquez-Fan calculation, which is a validated novel method providing better accuracy than the Friedewald equation in the estimation of LDL-C. Vazquez MEYER et al. JAIME. 2013;310(19): 8434-6110 (http://education.Ourcast/faq/BZZ853) CHOL/HDL RATIO 3.7 <5.0 (calc) [facility] TOTAL NON-HDL CHOL(LDL+VLDL) 111 <130 mg/dL (calc) [facility] Comment: For patients with diabetes plus 1 major ASCVD risk factor, treating to a non-HDL-C goal of <100 mg/dL (LDL-C of <70 mg/dL) is considered a therapeutic option. Test Performed at: [facility] [address] [place], [place] ??[phone] Nicolas Perla Blood 06/11/2023 8:18 AM CONDUCTOR PULLMAN 06/11/2023 10:35 PM CONDUCTOR PULLMAN Jennifer Ba [facility] CHEMISTRY ORDERABLES [facility] [phone] [facility] [address] [place] [address] * T4 FREE (06/11/2023 8:18 AM CONDUCTOR PULLMAN) T4 FREE 1.1 0.8 - 1.8 ng/dL [facility] Comment: Test Performed at: [facility] [address] [place], [place] ??[phone] Nicolas Perla MD Blood 06/11/2023 8:18 AM CONDUCTOR PULLMAN 06/11/2023 10:36 PM CONDUCTOR PULLMAN Jennifer Ba [facility] CHEMISTRY ORDERABLES Performing Organization Address City/State/ZIP Co nc Phone Number [facility] [phone] [email or web address] [address] documented in this encounter Visit Diagnoses Diagnosis Elevated TSH- Primary Other abnormal blood chemistry Hypertriglyceridemia Pure hyperglyceridemia Low HDL (under 40) Lipoprotein deficiencies documented in this encounter Care Teams Case Briefer Relationship Specialty Start Date End Date Katerina Eng MD [address] [place] [address] PCP - General Family Practice 08/28/22 documented as of this encounter
--- OUTSIDE RECORDS SUMMARY | 2024-05-19 16:56 | XMS_ITS | Encounter Summary ---
Author Organization [facility] Address [address] [place] [address] Care Team Providers Care Visual Educator Name Role Phone Katerina Eng MD Primary Care Provider [phone] Reason for Visit * Reason Comments Labs Only Encounter Details Date Type Department Care Team (Late st Contact Info) Description 08/28/2022 8:00 AM CDT Office Visit [facility] [place] [address] [place] [address] Screening for condition (Primary Dx) [...] as of this encounter Progress Notes * Eden Ladd - 08/28/2022 7:56 AM CDT Patient presents in office for wellness screen. Venipuncture performed to obtain lab specimens. 21gauge x1inch needle used in right ac space. Patient tolerated well. Patient tolerated well and education given. documented in this encounter Plan of Treatment Not on file documented as of this encounter Visit Diagnoses Diagnosis Screening for condition- Primary Screening for unspecified condition documented in this encounter Care Teams Visual Educator Relationship Specialty Start Date End Date Katerina Eng MD [address] [place] [id number] PCP - General Family Practice 08/28/22 documented as of this encounter
--- OUTSIDE RECORDS SUMMARY | 2024-05-19 16:56 | XMS_ITS | Encounter Summary ---
Author Organization [facility] Address [address] [place] [address] Care Team Providers Care Quick Print Operator Name Role Phone Jt Vazquez MD Primary Care Provider Unava ilable Reason for Visit * Reason Comments Back Pain Pt states that he wa s dumping a 50lb seed bag on Sat and when he sat it down he felt a pain, then yesterday he pulled on something and now has pain down both sides of his back, mainly the left side. Encounter Details Date Type Department Care Team (Late st Contact Info) Description 12/26/2017 1:00 PM CDT Office Visit [facility] [email or web address] [address] [place] [address] Kristen Vela, SONIDO [id number] [facility] [address] [place] [address] Strain of thoracic paraspinal muscles excluding T1 and T2 levels, initial encounter (Primary Dx) Social History Tobacco Use Types [...] Sign Reading Time Taken Comments Blood Pressure 116/76 12/26/2017 1:01 PM CDT Pulse 84 12/26/2017 1:01 PM CDT Temperature 36.6 ??C (97.9 ??F) 12/26/2017 1:01 PM CD T Respiratory Rate 16 12/26/2017 1:01 PM CDT Oxygen Saturation 97% 12/26/2017 1:01 PM CDT Inhaled Oxygen Concentration - - Weight 95.3 kg (210 lb) 12/26/2017 1:01 PM CDT Height 165.1 cm (5' 5 ) 12/26/2017 1:01 PM CDT Body Mass Index 34.95 12/26/2017 1:01 PM CDT documented in this encounter Progress Notes * Kristen Vela, SONIDO - 12/26/2017 1:23 PM CDT Images from the original note were not included. HISTORY OF PRESENT ILLNESS Marcelo Sampson is a 37 y.o. male who presents for Chief Complaint Patient presents with ??? Back Pain Pt states that he was dumping a 50lb seed bag on Sat and when he sat it down he felt a pain, then yesterday he pulled on something and now has pain down both sides of his back, mainly the left side. Has not tried anything for back as yet. Began 5 days ago then last night with pulling, pushing using his back muscles he had acute pain to right and left side of his mid upper back. Now today having stiffness upon arising and now just pain to left mid back with stretching. Denies loss of bowel or bladder control. Denies LE weakness, numbness or tingling. Denies pain to LE or buttocks. Past Medical History: Diagnosis Date ??? Patient denies relevant medical history Current Outpatient Prescriptions Medication Sig Dispense Refill ??? metaxalone (SKELAXIN) 800 mg tablet Take 1 Tablet (800 mg) by mouth 3 times daily. 30 Tablet 0 ??? nabumetone (RELAFEN) 500 mg tablet Take 1 Tablet (500 mg) by mouth 2 times daily Take with food. 30 Tablet 0 No current facility-administered medications for this visit. No Known Allergies BP 116/76 (BP Location: Left arm, Patient Position (BP): Sitting, BP Cuff Size: Large Adult) Pulse 84 Temp 97.9 ??F (36.6 ??C) (Tympanic) Resp 16 Ht 5' 5 (1.651 m) Wt 95.3 kg (210 lb) SpO2 97% BMI 34.95 kg/m?? Marcelo Sampson is a 37 y.o. male here today for his Back Pain (Pt states that he was dumping a 50lb seed bag on Sat and when he sat it down he felt a pain, then yesterday he pulled on something and now has pain down both sides of his back, mainly the left side. ) . MEDICAL RECORD UPDATE Past Medical History: Diagnosis Date ??? Patient denies relevant medical history Past Surgical History: Procedure Laterality Date ??? PT DENIES RELEVANT SURGICAL HISTORY Family History Problem Relation Age of Onset ??? Kidney Disease Father ??? No Known Problems Mother ??? No Known Problems Sister ??? Breast Cancer Maternal Grandmother ??? Heart Disease Maternal Grandfather ??? No Known Problems Paternal Grandmother ??? No Known Problems Paternal Grandfather ??? No Known Problems Daughter ??? Diabetes Sister Current medications and allergies were reviewed and updated in computerized patient record. [address] Care Providers: Patient Care Team: Jt Vazquez MD as PCP - General ([facility]) No Patient Care Coordination Note on file. EXAMINATION BP 116/76 (BP Location: Left arm, Patient Position (BP): Sitting, BP Cuff Size: Large Adult) Pulse 84 Temp 97.9 ??F (36.6 ??C) (Tympanic) Resp 16 Ht 5' 5 (1.651 m) Wt 95.3 kg (210 lb) SpO2 97% BMI 34.95 kg/m?? REVIEW OF SYSTEMS Review of Systems Constitutional: Negative. HENT: Negative. Respiratory: Negative. Cardiovascular: Negative. Gastrointestinal: Negative. Genitourinary: Negative. Musculoskeletal: Positive for back pain and myalgias. Skin: Negative. Neurological: Negative. Objective PHYSICAL EXAM Physical Exam Constitutional: He is oriented to person, place, and time. He appears well- developed and well-nourished. HENT: Head: Normocephalic and atraumatic. Nose: Nose normal. Eyes: Conjunctivae and EOM are normal. Cardiovascular: Normal rate, regular rhythm, S1 normal, S2 normal and normal heart sounds. Exam reveals no gallop and no friction rub. No murmur heard. Pulmonary/Chest: Effort normal and breath sounds normal. No respiratory distress. He has no wheezes. He has no rales. Musculoskeletal: Thoracic back: He exhibits swelling and spasm. He exhibits normal range of motion and no tenderness. Arms: Area of pain with stretching - left paraspinal about T 12 level. Palpable muscle spasms. No ecchymosis or swelling. ROM intact. Bilateral straight leg lifts 40 degrees Neurological: He is alert and oriented to person, place, and time. He has normal strength. Reflex Scores: Patellar reflexes are 2+ on the right side and 2+ on the left side. Skin: Skin is warm and dry. No results found for any visits on 12/26/17 (from the past 24 hour(s)). ASSESSMENT and PLAN: Marcelo was seen today for back pain. Diagnoses and all orders for this visit: Strain of thoracic paraspinal muscles excluding T1 and T2 levels, initial encounter - metaxalone (SKELAXIN) 800 mg tablet; Take 1 Tablet (800 mg) by mouth 3 times daily. - nabumetone (RELAFEN) 500 mg tablet; Take 1 Tablet (500 mg) by mouth 2 times daily Take with food. No red flags on hx/exam to warrant urgent imaging. Recommend initial conservative measures with NSAID's, heating pad, avoid exacerbating activities but encourage pt to stay active. Skelaxin prn spasms/tightness. Pain control- tylenol for breakthrough pain. Discussed side effects and precautions of muscle relaxant. Given educational handout. F/u if no improvement or worsens for further evaluation and consideration for PT. documented in this encounter Plan of Treatment Not on file documented as of this encounter Visit Diagnoses Diagnosis Strain of thoracic paraspinal muscles excluding T1 and T2 levels, initial encounter- Primary documented in this encounter Care Teams Quick Print Operator Relationship Specialty Start Date End Date Jt Vazquez MD PCP - General Family Practice 12/20/17 08/20/21 documented as of this encounter
--- OUTSIDE RECORDS SUMMARY | 2024-05-19 16:56 | XMS_ITS | Encounter Summary ---
Author Organization [facility] Address [address] [place] [address] Care Team Providers Care Form Drafter Name Role Phone Jt Vazquez MD Primary Care Provider Unava ilable Reason for Visit * Reason Comments Elevated Blood Pressure Encounter Details Date Type Department Care Team (Late st Contact Info) Description 07/17/2019 11:00 AM TEACHER EMOTIONALLY IMPAIRED Office Visit [facility] [place] [address] [place] [address] Kristen Vela, SONIDO [address] [facility] [address] [place] [address] Left arm pain (Primary Dx); Screening for condition; Myalgia Social History Tobacco Use Types Packs/Day Years [...] Sign Reading Time Taken Comments Blood Pressure 118/80 07/17/2019 11:01 AM TEACHER EMOTIONALLY IMPAIRED Pulse 88 07/17/2019 10:51 AM TEACHER EMOTIONALLY IMPAIRED Temperature 36.2 ??C (97.1 ??F) 07/17/2019 10:[address] Respiratory Rate 18 07/17/2019 10:51 AM TEACHER EMOTIONALLY IMPAIRED Oxygen Saturation 95% 07/17/2019 10:51 AM TEACHER EMOTIONALLY IMPAIRED Inhaled Oxygen Concentration - - Weight 94.3 kg (208 lb) 07/17/2019 10:51 AM TEACHER EMOTIONALLY IMPAIRED Height 165.1 cm (5' 5 ) 07/17/2019 10:51 AM TEACHER EMOTIONALLY IMPAIRED Body Mass Index 34.61 07/17/2019 10:51 AM TEACHER EMOTIONALLY IMPAIRED documented in this encounter Progress Notes * Kristen Vela, SONIDO - 07/17/2019 11:09 AM CSTAssociated Order(s): EKG 12-LEAD Images from the original note were not included. HISTORY OF PRESENT ILLNESS Marcelo Sampson is a 39 y.o. male who presents for Chief Complaint Patient presents with ??? Elevated Blood Pressure Went to dentist a few weeks ago and he had elevated BP but unsure how high. Family hx of HTN, DM, CAD. Concerned about intermittent left arm pain the past few days. Does not exercise regularly but is very active. Denies SOB, sweating, dizziness, chest pain. No swelling to ankles. Denies palpitations. Past Medical History: Diagnosis Date ??? Patient denies relevant medical history No current outpatient medications on file. No current facility-administered medications for this visit. No Known Allergies BP 118/80 (BP Location: Right arm, Patient Position (BP): Sitting, BP Cuff Size: Large Adult) Pulse 88 Temp 97.1 ??F (36.2 ??C) (Tympanic) Resp 18 Ht 5' 5 (1.651 m) Wt 94.3 kg (208 lb) SpO2 95% BMI 34.61 kg/m?? MEDICAL RECORD UPDATE Past Medical History: Diagnosis Date ??? Patient denies relevant medical history Past Surgical History: Procedure Laterality Date ??? PT DENIES RELEVANT SURGICAL HISTORY Family History Problem Relation Name Age of Onset ??? Kidney Disease Father ??? No Known Problems Mother ??? No Known Problems Sister ??? Breast Cancer Maternal Grandmother ??? Heart Disease Maternal Grandfather ??? No Known Problems Paternal Grandmother ??? No Known Problems Paternal Grandfather ??? No Known Problems Daughter ??? Diabetes Sister Current medications and allergies were reviewed and updated in computerized patient record. [facility] [address] [place] [address] . [facility] Care Providers: Patient Care Team: Jt Vazquez MD as PCP - General (Family Practice) No Patient Care Coordination Note on file. Vital signs/Tobacco use BP 118/80 (BP Location: Right arm, Patient Position (BP): Sitting, BP Cuff Size: Large Adult) Pulse 88 Temp 97.1 ??F (36.2 ??C) (Tympanic) Resp 18 Ht 5' 5 (1.651 m) Wt 94.3 kg (208 lb) SpO2 95% BMI 34.61 kg/m?? Blood Pressure BP Readings from Last 3 Encounters: 07/17/19 118/80 12/08/18 114/88 11/05/18 118/78 BMI POC (QM) Body mass index is 34.61 kg/m??. Normal BMI range: 18 & older: > or = 18.5 and < 25 Abnormal high BMI: Patient counseled on lifestyle modifications including weight loss and daily exercise. The 10-year CVD risk score (Sarah'Agostino, et al., 2008) is: 2.3% Values used to calculate the score: Age: 39 years Sex: Male Diabetic: No Tobacco smoker: No Systolic Blood Pressure: 118 mmHg Is BP treated: No HDL Cholesterol: 35 mg/dL Total Cholesterol: 123 mg/dL Consider Statins if 10 year risk >7.5-10% Tobacco Use (QM) reports that he has never smoked. He has never used smokeless tobacco. He is not a tobacco user. DEPRESSION SCREENING (QM) PHQ2: Positive: PHQ-2 score > 2 or PHQ-9 score > 9 PHQ-2 Total: 0 (07/17/19 1000) His depression screen was normal EXAMINATION REVIEW OF SYSTEMS Review of Systems Constitutional: Negative for chills and fever. Respiratory: Negative for cough and shortness of breath. Cardiovascular: Negative for chest pain, palpitations and leg swelling. Gastrointestinal: Negative for nausea and vomiting. Musculoskeletal: Positive for myalgias. Neurological: Positive for headaches. Negative for dizziness. Few recent headaches Objective PHYSICAL EXAM Physical Exam Constitutional: Appearance: He is well-developed. HENT: Head: Normocephalic and atraumatic. Nose: Nose normal. Eyes: Conjunctiva/sclera: Conjunctivae normal. Cardiovascular: Rate and Rhythm: Normal rate and regular rhythm. Heart sounds: Normal heart sounds, S1 normal and S2 normal. No murmur. No friction rub. No gallop. Pulmonary: Effort: Pulmonary effort is normal. No respiratory distress. Breath sounds: Normal breath sounds. No wheezing or rales. Musculoskeletal: Arms: Skin: General: Skin is warm and dry. Neurological: Mental Status: He is alert and oriented to person, place, and time. No results found for any visits on 07/17/19 (from the past 24 hour(s)). EKG 12-LEAD Date/Time: 07/17/2019 11:19 AM Performed by: Kristen Vela NP Authorized by: Kristen Vela NP Comparison: not compared with previous ECG Rhythm: sinus rhythm Rate: normal QRS axis: normal Conduction: conduction normal ST Segments: ST segments normal T Waves: T waves normal Clinical impression: normal ECG ASSESSMENT and PLAN: Marcelo was seen today for elevated blood pressure. Diagnoses and all orders for this visit: Left arm pain - EKG 12-LEAD Screening for condition - CBC WITH DIFFERENTIAL; Future - COMPREHENSIVE METABOLIC PANEL; Future - LIPID PANEL; Future - TSH; Future Myalgia BP normal today. Advise fasting labs. LDL has been <100 past readings. BP check with labs. Family Hx of health issues. Discussed with pt healthy diet including adding fruits, vegetables to diet. Increase fiber in diet,whole grain cereals and bread. Lean meats, low saturated fat diet. Limit concentrated sweets, carbs. Aerobic exercise recommended 30 min a day for at least 5 days a week. Start with 3 days a week and work up to goal. Stop if any SOB, chest pain or dizziness. Discussed prevention of HTN, DM. F/u prn HER EMOTIONALLY IMPAIRED documented in this encounter Miscellaneous Notes * Patient Instructions - Kristen Vela NP - 07/17/2019 11:15 AM TEACHER EMOTIONALLY IMPAIRED Images from the original note were not included. Muscle Strain: Care Instructions Your Care Instructions A muscle strain happens when you overstretch, or pull, a muscle. It can happen when you exercise orlift something or when you have an accident. Rest and other home care can help the muscle heal. Follow-up care is a juan part of your treatment and safety. Be sure to make and go to all appointments, and call your doctor if you are having problems. It's also a good idea to know your test resultsand keep a list of the medicines you take. How can you care for yourself at home? ?? Rest the strained muscle. Do not put weight on it for a day or two. If your doctor advises you to, use crutches or a sling to rest a sore limb. ?? Put ice or a cold pack on the sore muscle for 10 to 20 minutes at a time to stop swelling. Put athin cloth between the ice pack and your skin. ?? Prop up the sore arm or leg on a pillow when you ice it or anytime you sit or lie down during the next 3 days. Try to keep it above the level of your heart. This will help reduce swelling. ?? Take pain medicines exactly as directed. ? If the doctor gave you a prescription medicine for pain, take it as prescribed. ? If you are not taking a prescription pain medicine, ask your doctor if you can take an [id number]-[id number] medicine. ?? Do not do anything that makes the pain worse. Return to exercise gradually as you feel better. When should you call for help? Call your doctor now or seek immediate medical care if: ? You have new severe pain. ? Your injured limb is cool or pale or changes color. ? You have tingling, weakness, or numbness in your injured limb. ? You cannot move the injured area. ??Watch closely for changes in your health, and be sure to contact your doctor if: ? You cannot put weight on a joint, or it feels unsteady when you walk. ? Pain and swelling get worse or do not start to get better after 2 days of home treatment. Where can you learn more? Go to https://www.[employer].net/patiented Enter C862 in the search box to learn more about Muscle Strain: Care Instructions. Current as of: November 05, 2018 Content Version: 12.3 ?? [id number] [employer]. Care instructions adapted under license by your healthcare professional. If you have questions about a medical condition or this instruction, always ask your healthcare professional. These instructions may not represent the values of this healthcare organization. [employer] disclaims any warranty or liability for your use of this information. HER EMOTIONALLY IMPAIRED documented in this encounter Plan of Treatment Not on file documented as of this encounter Procedures Procedure Name Priority Date/Time Associated Diagnosis Comments MI ECG ROUTINE ECG W/LEAST 12 LDS W/I&R Routine 07/17/2019 11:09 AM TEACHER EMOTIONALLY IMPAIRED Left arm pain documented in this encounter Results * TSH (07/21/2019 7:23 AM CDT) TSH 2.130 0.450 - 4.500 uIU/mL [facility] Blood 07/21/2019 7:23 AM CDT 07/21/2019 Narrative [facility] - 07/22/2019 7:36 AM CDT Performed at: ??01 - [facility] ??[id number] Inside Technical Sales Representative: Krishna Grimes PhD, Phone: ??[phone] Kristen Vela NP CHEMISTRY ORDER PETAR Performing Organization Address [facility] Co de Phone Number [facility] [phone] * (ABNORMAL) LIPID PANEL (07/21/2019 7:23 AM CDT) Pathologist [facility] CHOLESTEROL 156 100 - 199 mg/dL [facility] TRIGLYCERIDE 99 0 - 149 mg/dL [facility] HDL 34(L) >39 mg/dL [facility] VLDL CHOLESTEROL, CALCULATED 20 5 - 40 mg/dL [facility] LDL CALCULATED 102(H) 0 - 99 mg/dL [facility] Blood 07/21/2019 7:23 AM CDT 07/21/2019 Narrative [facility] - 07/22/2019 5:35 AM CDT Performed at: ?? - [facility] ??[id number] Inside Technical Sales Representative: Krishna Grimes PhD, Phone: ??[phone] Kristen Vela NP CHEMISTRY ORDER PETAR Performing Organization Address [facility] Co de Phone Number [facility] [phone] * COMPREHENSIVE METABOLIC PANEL (07/21/2019 7:23 AM CDT) GLUCOSE 96 65 - 99 mg/dL [facility] BUN 15 6 - 20 mg/dL [facility] CREATININE 1.05 0.76 - 1.27 mg/dL [facility] GFR 90 >59 mL/min/1.7 3 [facility] GFR, 104 >59 mL/min/1.7 3 [facility] BUN/CREAT RATIO 14 9 - 20 [facility] SODIUM 140 134 - 144 mmol/L [facility] POTASSIUM 4.9 3.5 - 5.2 mmol/L [facility] CHLORIDE 103 96 - 106 mmol/L [facility] CO2 26 20 - 29 mmol/L [facility] CALCIUM 9.7 8.7 - 10.2 mg/dL [facility] TOTAL PROTEIN 7.2 6.0 - 8.5 g/dL [facility] ALBUMIN 4.7 4.0 - 5.0 g/dL [facility] GLOBULIN 2.5 1.5 - 4.5 g/dL [facility] ALBUMIN/GLOBULIN RATIO 1.9 1.2 - 2.2 [facility] BILIRUBIN TOTAL 0.4 0.0 - 1.2 mg/dL [facility] ALKALINE PHOSPHATASE 55 39 - 117 IU/L [facility] AST 15 0 - 40 IU/L [facility] ALT 25 0 - 44 IU/L [facility] Blood 07/21/2019 7:23 AM CDT 07/21/2019 Narrative [facility] - 07/22/2019 5:35 AM CDT Performed at: ??01 - [facility] [address] ??[id number] Inside Technical Sales Representative: Krishna Grimes PhD, Phone: ??[phone] Kristen Vela NP CHEMISTRY ORDER PETAR [facility] [phone] * CBC WITH DIFFERENTIAL (07/21/2019 7:23 AM CDT) Pathologist [facility] WBC 5.0 3.4 - 10.8 x10E3/uL [facility] RBC 5.66 4.14 - 5.80 x10E6/uL [facility] HEMOGLOBIN 16.1 13.0 - 17.7 g/dL [facility] HEMATOCRIT 48.4 37.5 - 51.0 % [facility] MCV 86 79 - 97 fL [facility] MCH 28.4 26.6 - 33.0 pg [facility] MCHC 33.3 31.5 - 35.7 g/dL [facility] RDW 12.8 11.6 - 15.4 % [facility] PLATELETS 243 150 - 450 x10E3/uL [facility] NEUTROPHIL 52 Not Estab. % [facility] LYMPHOCYTES 37 Not Estab. % [facility] MONOCYTE 8 Not Estab. % [facility] EOSINOPHILS 2 Not Estab. % [facility] BASOPHILS 1 Not Estab. % [facility] NEUTROPHIL ABSOLUTE 2.6 1.4 - 7.0 x10E3/uL [facility] LYMPHOCYTE ABSOLUTE 1.9 0.7 - 3.1 x10E3/uL [facility] MONOCYTE ABSOLUTE 0.4 0.1 - 0.9 x10E3/uL [facility] EOSINOPHIL ABSOLUTE 0.1 0.0 - 0.4 x10E3/uL [facility] BASOPHILS ABSOLUTE 0.0 0.0 - 0.2 x10E3/uL [facility] IMMATURE GRANULOCYTES 0 Not Estab. % [facility] IMMATURE GRANULOCYTES ABSOLUTE 0.0 0.0 - 0.1 x10E3/uL [facility] Blood 07/21/2019 7:23 AM CDT 07/21/2019 Narrative [facility] - 07/22/2019 4:35 AM CDT Performed at: ?? - [facility] [address], [place], [place] ??[id number] Inside Technical Sales Representative: Krishna Grimes PhD, Phone: ??[phone] Kristen Vela NP HEMATOLOGY GUERDA JON [facility] [phone] * [place] ECG ROUTINE ECG W/LEAST 12 LDS W/I&R (07/17/2019 11:09 AM TEACHER EMOTIONALLY IMPAIRED) Narrative [facility] [place] - 07/17/2019 11:09 AM TEACHER EMOTIONALLY IMPAIRED Kirsten Vela NP ? 07/17/2019 12:28 PM EKG 12-LEAD Date/Time: 07/17/2019 11:19 AM Performed by: Kristen Vela NP Authorized by: Kristne Vela NP Comparison: not compared with previous ECG Rhythm: sinus rhythm Rate: normal QRS axis: normal Conduction: conduction normal ST Segments: ST segments normal T Waves: T waves normal Clinical impression: normal ECG Procedure Note Kristen Vela NP - 07/17/2019 11:09 AM CST Images from the original note were not included. HISTORY OF PRESENT ILLNESS Marcelo Sampson is a 39 y.o. male who presents for Chief Complaint Patient presents with ? ? Elevated Blood Pressure Went to dentist a few weeks ago and he had elevated BP but unsure howhigh. Family hx of HTN, DM, CAD. Concerned about intermittent left arm pain the past few days. Does notexercise regularly but is very active. Denies SOB, sweating, dizziness,chest pain. No swelling to ankles. Denies palpitations. Past Medical History: Diagnosis Date ? ? Patient denies relevant medical history No current outpatient medications on file. No current facility-administered medications for this visit. No Known Allergies BP 118/80 (BP Location: Right arm, Patient Position (BP): Sitting, BP CuffSize: Large Adult) Pulse 88 Temp 97.1 ??F (36.2 ??C) (Tympanic) Resp 18 Ht 5' 5 (1.651 m) Wt 94.3 kg (208 lb) SpO2 95% BMI34.61 kg/m?? MEDICAL RECORD UPDATE Past Medical History: Diagnosis Date ? ? Patient denies relevant medical history Past Surgical History: Procedure Laterality Date ? ? PT DENIES RELEVANT SURGICAL HISTORY Family History Problem Relation Name Age of Onset ? ? Kidney Disease Father ? ? No Known Problems Mother ? ? No Known Problems Sister ? ? Breast Cancer Maternal Grandmother ? ? Heart Disease Maternal Grandfather ? ? No Known Problems Paternal Grandmother ? ? No Known Problems Paternal Grandfather ? ? No Known Problems Daughter ? ? Diabetes Sister Current medications and allergies were reviewed and updated incomputerized patient record. [facility] [address] [place] [address] Care Providers: Patient Care Team: Jt Vazquez MD as PCP - General (Family Practice) No Patient Care Coordination Note on file. Vital signs/Tobacco use BP 118/80 (BP Location: Right arm, Patient Position (BP): Sitting, BP CuffSize: Large Adult) Pulse 88 Temp 97.1 ??F (36.2 ??C) (Tympanic) Resp 18 Ht 5' 5 (1.651 m) Wt 94.3 kg (208 lb) SpO2 95% BMI34.61 kg/m?? Blood Pressure BP Readings from Last 3 Encounters: 07/17/19 118/80 12/08/18 114/88 11/05/18 118/78 BMI POC (QM) Body mass index is 34.61 kg/m??. Normal BMI range: 18 & older: > or = 18.5 and < 25 Abnormal high BMI: Patient counseled onlifestyle modifications including weight loss and daily exercise. The 10-year CVD risk score (D'Agostino, et al., 2008) is: 2.3% Values used to calculate the score: Age: 39 years Sex: Male Diabetic: No Tobacco smoker: No Systolic Blood Pressure: 118 mmHg Is BP treated: No HDL Cholesterol: 35 mg/dL Total Cholesterol: 123 mg/dL Consider Statins if 10 year risk >7.5-10% Tobacco Use (QM) reports that he has never smoked. He has never used smokeless tobacco. He is not a tobacco user. DEPRESSION SCREENING (QM) PHQ2: Positive: PHQ-2 score > 2 or PHQ-9 score > 9 PHQ-2 Total: 0 (07/17/19 1000) His depression screen was normal EXAMINATION REVIEW OF SYSTEMS Review of Systems Constitutional: Negative for chills and fever. Respiratory: Negative for cough and shortness of breath. Cardiovascular: Negative for chest pain, palpitations and leg swelling. Gastrointestinal: Negative for nausea and vomiting. Musculoskeletal: Positive for myalgias. Neurological: Positive for headaches. Negative for dizziness. Few recent headaches Objective PHYSICAL EXAM Physical Exam Constitutional: Appearance: He is well-developed. HENT: Head: Normocephalic and atraumatic. Nose: Nose normal. Eyes: Conjunctiva/sclera: Conjunctivae normal. Cardiovascular: Rate and Rhythm: Normal rate and regular rhythm. Heart sounds: Normal heart sounds, S1 normal and S2 normal. No murmur.No friction rub. No gallop. Pulmonary: Effort: Pulmonary effort is normal. No respiratory distress. Breath sounds: Normal breath sounds. No wheezing or rales. Musculoskeletal: Arms: Skin: General: Skin is warm and dry. Neurological: Mental Status: He is alert and oriented to person, place, and time. No results found for any visits on 07/17/19 (from the past 24 hour(s)). EKG 12-LEAD Date/Time: 07/17/2019 11:19 AM Performed by: Kristen Vela NP Authorized by: Kristen Vela NP Comparison: not compared with previous ECG Rhythm: sinus rhythm Rate: normal QRS axis: normal Conduction: conduction normal ST Segments: ST segments normal T Waves: T waves normal Clinical impression: normal ECG ASSESSMENT and PLAN: Marcelo was seen today for elevated blood pressure. Diagnoses and all orders for this visit: Left arm pain - EKG 12-LEAD Screening for condition - CBC WITH DIFFERENTIAL; Future - COMPREHENSIVE METABOLIC PANEL; Future - LIPID PANEL; Future - TSH; Future Myalgia BP normal today. Advise fasting labs. LDL has been <100 past readings. BPcheck with labs. Family Hx of health issues. Discussed with pt healthy diet including adding fruits, vegetables todiet. Increase fiber in diet, whole grain cereals and bread. Lean meats,low saturated fat diet. Limit concentrated sweets, carbs. Aerobic exercise recommended 30 min a day for at least 5 days a week.Start with 3 days a week and work up to goal. Stop if any SOB, chest painor dizziness. Discussed prevention of HTN, DM. F/u prn Kristen Vela NP ECG ORDERABLES [facility]# [id number] [address] [address] documented in this encounter Visit Diagnoses Diagnosis Left arm pain- Primary Pain in limb Screening for condition Screening for unspecified condition Myalgia Mylagia and myositis, unspecified Screening for condition Screening for unspecified condition documented in this encounter Care Teams Form Drafter Relationship Specialty Start Date End Date Jt Vazquez MD PCP - General Family Practice 12/20/17 08/20/21 documented as of this encounter
--- OUTSIDE RECORDS SUMMARY | 2024-05-19 16:56 | XMS_ITS | Encounter Summary ---
Author Organization [facility] Address [address] [place] [address] Care Team Providers Care Rehabilitation Team Lead Name Role Phone Jt Vazquez MD Primary Care Provider Unava ilable Reason for Visit * Reason Comments Labs Only Annual Wellness scre ening Encounter Details Date Type Department Care Team (Late st Contact Info) Description 12/20/2017 7:20 AM CDT Office Visit [facility] [employer] [address] [place] [address] Screening for condition (Primary Dx) Social History [...] Sign Reading Time Taken Comments Blood Pressure 108/80 12/20/2017 7:33 AM CDT Pulse 62 12/20/2017 7:33 AM CDT Temperature - - Respiratory Rate - - Oxygen Saturation - - Inhaled Oxygen Concentration - - Weight 93.9 kg (207 lb) 12/20/2017 7:33 AM CDT Height 165.1 cm (5' 5 ) 12/20/2017 7:33 AM CDT Body Mass Index 34.45 12/20/2017 7:33 AM CDT documented in this encounter Progress Notes * Thania Osorio - 12/20/2017 7:33 AM CDT Pt came in for blood draw, right AC successful, 1 stick, pt tolerated well. Drawn by David. documented in this encounter Plan of Treatment Not on file documented as of this encounter Procedures Procedure Name Priority Date/Time Associated Diagnosis Comments CBC WITH DIFFERENTIAL Routine 12/20/2017 7:34 AM CDT Screening for condition TSH Routine 12/20/2017 7:34 AM CDT Screening for condition LIPID PANEL Routine 12/20/2017 7:34 AM CDT Screening for condition COMPREHENSIVE METABOLIC PANEL Routine 12/20/2017 7:34 AM CDT Screening for condition documented in this encounter Results * TSH (12/20/2017 7:34 AM CDT) TSH 1.450 0.450 - 4.500 uIU/mL [facility] Blood 12/20/2017 7:34 AM CDT 12/20/2017 Narrative [facility] - 12/21/2017 8:39 AM CDT Performed at: ??01 - [facility] ??[id number] Gyro Compass Tester: Krishna Grimes PhD, Phone: ??[phone] Kristen Vela MANUAL LATHE OPERATOR CHEMISTRY ORDER PETAR [facility] * (ABNORMAL) LIPID PANEL (12/20/2017 7:34 AM CDT) CHOLESTEROL 127 100 - 199 mg/dL [facility] TRIGLYCERIDE 131 0 - 149 mg/dL [facility] HDL 31(L) >39 mg/dL [facility] VLDL CHOLESTEROL, CALCULATED 26 5 - 40 mg/dL [facility] LDL CALCULATED 70 0 - 99 mg/dL [facility] Blood 12/20/2017 7:34 AM CDT 12/20/2017 Narrative [facility] - 12/21/2017 7:38 AM CDT Performed at: ??01 - [facility] [address] ??[id number] Gyro Compass Tester: Krishna Grimes PhD, Phone: ??[phone] Kristen Vela MANUAL LATHE OPERATOR CHEMISTRY ORDER PETAR [facility] * COMPREHENSIVE METABOLIC PANEL (12/20/2017 7:34 AM CDT) GLUCOSE 85 65 - 99 mg/dL [facility] BUN 15 6 - 20 mg/dL [facility] CREATININE 1.00 0.76 - 1.27 mg/dL [facility] GFR 97 >59 mL/min/1.7 3 [facility] GFR, 112 >59 mL/min/1.7 3 [facility] BUN/CREAT RATIO 15 9 - 20 [facility] SODIUM 141 134 - 144 mmol/L [facility] POTASSIUM 4.3 3.5 - 5.2 mmol/L [facility] CHLORIDE 104 96 - 106 mmol/L [facility] CO2 24 20 - 29 mmol/L [facility] CALCIUM 9.3 8.7 - 10.2 mg/dL [facility] TOTAL PROTEIN 7.2 6.0 - 8.5 g/dL [facility] ALBUMIN 4.8 3.5 - 5.5 g/dL [facility] GLOBULIN 2.4 1.5 - 4.5 g/dL [facility] ALBUMIN/GLOBULIN RATIO 2.0 1.2 - 2.2 [facility] BILIRUBIN TOTAL 0.5 0.0 - 1.2 mg/dL [facility] ALKALINE PHOSPHATASE 56 39 - 117 IU/L [facility] AST 16 0 - 40 IU/L [facility] ALT 17 0 - 44 IU/L [facility] Blood 12/20/2017 7:34 AM CDT 12/20/2017 Narrative [facility] - 12/21/2017 6:37 AM CDT Performed at: ??01 - [facility] [address] ??[id number] Gyro Compass Tester: Krishna Grimes PhD, Phone: ??[phone] Kristen Locke Vela MANUAL LATHE OPERATOR CHEMISTRY ORDER PETAR [facility] * CBC WITH DIFFERENTIAL (12/20/2017 7:34 AM CDT) WBC 5.8 3.4 - 10.8 x10E3/uL [facility] RBC 5.45 4.14 - 5.80 x10E6/uL [facility] HEMOGLOBIN 15.8 13.0 - 17.7 g/dL [facility] HEMATOCRIT 46.6 37.5 - 51.0 % [facility] MCV 86 79 - 97 fL [facility] MCH 29.0 26.6 - 33.0 pg [facility] MCHC 33.9 31.5 - 35.7 g/dL [facility] RDW 13.2 12.3 - 15.4 % [facility] PLATELETS 220 150 - 379 x10E3/uL [facility] NEUTROPHIL 52 Not Estab. % [facility] LYMPHOCYTES 36 Not Estab. % [facility] MONOCYTE 7 Not Estab. % [facility] EOSINOPHILS 4 Not Estab. % [facility] BASOPHILS 1 Not Estab. % [facility] NEUTROPHIL ABSOLUTE 3.1 1.4 - 7.0 x10E3/uL [facility] LYMPHOCYTE ABSOLUTE 2.1 0.7 - 3.1 x10E3/uL [facility] MONOCYTE ABSOLUTE 0.4 0.1 - 0.9 x10E3/uL [facility] EOSINOPHIL ABSOLUTE 0.2 0.0 - 0.4 x10E3/uL [facility] BASOPHILS ABSOLUTE 0.0 0.0 - 0.2 x10E3/uL [facility] IMMATURE GRANULOCYTES 0 Not Estab. % [facility] IMMATURE GRANULOCYTES ABSOLUTE 0.0 0.0 - 0.1 x10E3/uL [facility] Blood 12/20/2017 7:34 AM CDT 12/20/2017 Narrative [facility] - 12/21/2017 4:36 AM CDT Performed at: ??01 - [address], [place] ??[id number] Gyro Compass Tester: Krishna Grimes PhD, Phone: ??[phone] Kristen Vela MANUAL LATHE OPERATOR HEMATOLOGY [facility] Organization Address City/State/ZIP Co de Phone Number [facility] documented in this encounter Visit Diagnoses Diagnosis Screening for condition- Primary Screening for unspecified condition documented in this encounter Care Teams Rehabilitation Team Lead Relationship Specialty Start Date End Date Jt Vazquez MD PCP - General Family Practice 12/20/17 08/20/21 documented as of this encounter
--- OUTSIDE RECORDS SUMMARY | 2024-05-19 16:56 | XMS_ITS | Encounter Summary ---
Author Organization [facility] Address [address] [place] [address] Care Team Providers Care Fitter Welder Name Role Phone Jt Vazquez MD Primary Care Provider Unava ilable Reason for Visit * Reason Comments Labs Only Encounter Details Date Type Department Care Team (Late st Contact Info) Description 12/08/2018 7:15 AM CDT Office Visit [facility] [employer] [address] [place] [address] Screening for condition (Primary Dx) [...] Sign Reading Time Taken Comments Blood Pressure 114/88 12/08/2018 7:17 AM CDT Pulse - - Temperature - - Respiratory Rate - - Oxygen Saturation - - Inhaled Oxygen Concentration - - Weight 100.7 kg (222 lb) 12/08/2018 7:17 AM CDT Height 165.1 cm (5' 5 ) 12/08/2018 7:17 AM CDT Body Mass Index 36.94 12/08/2018 7:17 AM CDT documented in this encounter Progress Notes * Thania Osorio - 12/08/2018 7:22 AM CDT Pt came in for annual wellness screening finger stick, right hand 2nd digit, pt tolerate well. CHELI Hernandez documented in this encounter Plan of Treatment Not on file documented as of this encounter Procedures Procedure Name Priority Date/Time Associated Diagnosis Comments GLUCOSE LEVEL Routine 12/08/2018 LIPID PANEL Routine 12/08/2018 documented in this encounter Results * GLUCOSE LEVEL (12/08/2018) GLUCOSE 96 74 - 99 mg/dL [facility] Blood 12/08/2018 Abstract Provider CHEMISTRY ORDERABLES [facility] CLIA# [id number] [facility] [place] [address] * (ABNORMAL) LIPID PANEL (12/08/2018) CHOLESTEROL 123 200 mg/dL [facility] TRIGLYCERIDE 174(A) 150 mg/dL [facility] HDL 35(A) 40 - 59 mg/dL [facility] LDL CALCULATED 53 100 mg/dL [facility] TC/HDL POC 3.5 3.43 - 4.97 Ratio [facility] Blood 12/08/2018 Abstract Provider CHEMISTRY ORDERABLES [facility] CLIA# [id number] [address] [place] [address] documented in this encounter Visit Diagnoses Diagnosis Screening for condition- Primary Screening for unspecified condition documented in this encounter Care Teams Fitter Welder Relationship Specialty Start Date End Date Jt Vazquez MD PCP - General Family Practice 12/20/17 08/20/21 documented as of this encounter
--- OUTSIDE RECORDS SUMMARY | 2024-05-19 16:56 | XMS_ITS | Encounter Summary ---
Author Organization [facility] Address [address] [place] [address] Care Team Providers Care Grommet Machine Operator Name Role Phone Jt Vazquez MD Primary Care Provider Unava ilable Reason for Referral * Eval and Treat (Routine) - Closed Specialty Diagnoses / Procedures Referred By Neena zhao Referred To Contact Plastic Surgery Diagnoses Mucocele of lower lip Jt Vazquez MD NO ADDRESS ON FILE Referral ID Status Reason Start Date Expiration Date V isits Requested Visits Authorized [id number] Closed CRS To Schedule (STL) 11/05/2018 11/06/2019 3 3 * Eval and Treat (Routine) - Closed Specialty Diagnoses / Procedures Referred By Neena zhao Referred To Contact Otolaryngology Diagnoses Mucocele of lower lip Jt Vazquez MD NO ADDRESS ON FILE Referral ID Status Reason Start Date Expiration Date V isits Requested Visits Authorized [id number] Closed CRS To Schedule (STL) 11/05/2018 11/06/2019 3 3 Reason for Visit * Reason Comments Lip Laceration Encounter Details Date Type Department Care Team (Late st Contact Info) Description 11/05/2018 7:30 AM CDT Office Visit [facility] [employer] [address] [place] [address] Jt Vazquez MD NO ADDRESS ON FILE Mucocele of lower lip (Primary Dx) Social History Tobacco Use Types [...] Sign Reading Time Taken Comments Blood Pressure 118/78 11/05/2018 7:28 AM CDT Pulse 74 11/05/2018 7:28 AM CDT Temperature 36.7 ??C (98.1 ??F) 11/05/2018 7:28 AM CD T Respiratory Rate 16 11/05/2018 7:28 AM CDT Oxygen Saturation 98% 11/05/2018 7:28 AM CDT Inhaled Oxygen Concentration - - Weight 101.2 kg (223 lb) 11/05/2018 7:28 AM CDT Height 165.1 cm (5' 5 ) 11/05/2018 7:28 AM CDT Body Mass Index 37.11 11/05/2018 7:28 AM CDT documented in this encounter Progress Notes * Jt Vazquez MD - 11/05/2018 7:32 AM CDT Marcelo Sampson is a 38 y.o. male Chief Complaint/HPI: Chief Complaint Patient presents with ??? Lip Laceration Tobacco Intervention He is not a tobacco user. Depression Screen Positive: PHQ-2 score >= 3 or PHQ-9 score >= 9 PHQ-2 Total: 0 (09/10/2018 8:00 AM) DEPRESSION PLAN OF CARE His depression screen was normal Blood Pressure BP Readings from Last 3 Encounters: 11/05/18 118/78 09/10/18 120/82 03/12/18 116/76 This medical record reflects the history of present illness as obtained by myself in discussion with the patient. SUBJECTIVE: Here for above problems. Continues with lesion/?mucocoele lower lip. Now with constant enlargent and sloughing and drying and then cycle repeats. wouold like removed or dealt with. ROS Review of Systems - History obtained from chart review and the patient General ROS: negative for weight changes, fever Psychological ROS: negative for anxiety or depressive symptoms ENT ROS: negative for nasal congestion, drainage or bleeding, sore throat, dysphagia or ear pain positive for - oral lesions Dermatological ROS: negative for skin rashes or unusual skin lesions Allergy and medication list reviewed and updated. OBJECTIVE: He appears well, in no apparent distress. Vital signs documented in vital signs section and are reviewed. Physical Examination: General appearance - alert, well appearing, and in no distress and oriented to person, place, and time Mental status - alert, oriented to person, place, and time, normal mood, behavior, speech, dress, motor activity, and thought processes Nose - normal and patent, no erythema, discharge or polyps Mouth - mucous membranes moist, pharynx normal without lesions and lower lip midline area of dry appearing lesion. relatviely flat. No discharge. Not red. Almost mansfield colored. No other lesions. Neck - supple, no significant adenopathy Not sure if mucocoele or other lesion. 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 Please call the number below for help with scheduling your test/imaging referral or physician/therapy referral. [facility] Central referral [phone] [facility] Main number and ask for physician referral department: [phone] [facility] Main number and ask for physician referral department: [phone] [facility] Main number and ask for physician referral department: [phone] [facility] Main number and ask for physician referral department: [phone] documented in this encounter Plan of Treatment Scheduled Referrals Name Type Priority Associated Diagnoses Orde r Schedule AMB REFERRAL TO ENT Outpatient Referral Routine Mucocele of lower lip Ordered: 11/05/2018 AMB REFERRAL TO PLASTIC SURGERY Outpatient Referral Routine Mucocele of lower lip Ordered: 11/05/2018 documented as of this encounter Visit Diagnoses Diagnosis Mucocele of lower lip- Primary Other and unspecified diseases of the oral soft tissues documented in this encounter Care Teams Grommet Machine Operator Relationship Specialty Start Date End Date Jt Vazquez MD PCP - General Family Practice 12/20/17 08/20/21 documented as of this encounter
--- OUTSIDE RECORDS SUMMARY | 2024-05-19 16:56 | XMS_ITS | Encounter Summary ---
Author Organization [facility] Address [address] [place] [address] Care Team Providers Care Operations Support Professionals Name Role Phone Jt Vazquez MD Primary Care Provider Unava ilable Reason for Visit * Reason Comments Dizziness Encounter Details Date Type Department Care Team (Late st Contact Info) Description 01/01/2020 1:30 PM CDT Office Visit [facility] [place] [address] [address] Kristen Vela, [employer] [address] [facility], [place] [address] [place] [address] Chest pressure (Primary Dx); Family history of diabetes mellitus in father; Dizziness; Gastroesophageal reflux disease without esophagitis; ETD (Eustachian tube dysfunction), right Social History Tobacco Use Types Packs/Day Years [...] AM CDT documented as of this encounter Last Filed Vital Signs Vital Sign Reading Time Taken Comments Blood Pressure 116/68 01/01/2020 1:30 PM CDT Pulse 73 01/01/2020 1:30 PM CDT Temperature 36.5 ??C (97.7 ??F) 01/01/2020 1:30 PM CD T Respiratory Rate 18 01/01/2020 1:30 PM CDT Oxygen Saturation 98% 01/01/2020 1:30 PM CDT Inhaled Oxygen Concentration - - Weight 98.9 kg (218 lb) 01/01/2020 1:30 PM CDT Height 165.1 cm (5' 5 ) 01/01/2020 1:30 PM CDT Body Mass Index 36.28 01/01/2020 1:30 PM CDT documented in this encounter Progress Notes * Kristen Vela, SONIDO - 01/01/2020 1:37 PM CDTAssociated Order(s): EKG 12-LEAD Post-Procedure Diagnose(s): Chest pressure HISTORY OF PRESENT ILLNESS Marcelo Sampson is a 39 y.o. male who presents for Chief Complaint Patient presents with ??? Dizziness For the past 3 weeks fleeting dizziness lasting a few seconds, unrelated to activity, head turning. For the past 3 weeks has had a different feeling to his anterior chest. Random, lasts few seconds. Father (1 month ago) from CHF, CAD-did not live to have coronary bypass surgery. Family hx of CAD in father, uncle. Father was 59 yrs old and diabetic. Denies ear pain, issues. Denies chest pain, SOB, sweating, nausea. Has been under stress and anxious. Frequent episodes after almost all meals of acid reflux. Admits he feels he needs to lose wt. Past Medical History: Diagnosis Date ??? Patient denies relevant medical history Current Outpatient Medications Medication Sig Dispense Refill ??? fluticasone propionate (FLONASE) 50 mcg/spray Coats, Suspension nasal inhaler 2 sprays each nostril twice a day for 7-10 days. 16 Gram 0 ??? esomeprazole (NexIUM) 40 mg Capsule, Delayed Release(E.C.) Take 1 Capsule (40 mg) by mouth daily before breakfast. 30 Capsule 6 No current facility-administered medications for this visit. No Known Allergies BP 116/68 (BP Location: Left arm, Patient Position (BP): Sitting, BP Cuff Size: Large Adult) Pulse 73 Temp 97.7 ??F (36.5 ??C) (Tympanic) Resp 18 Ht 5' 5 (1.651 m) Wt 98.9 kg (218 lb) SpO2 98% BMI 36.28 kg/m?? MEDICAL RECORD UPDATE Past Medical History: [...] reviewed and updated in computerized patient record. [address] Providers: Patient Care Team: Jt Vazquez MD as PCP - General (Family Practice) No Patient Care Coordination Note on file. Vital signs/Tobacco use BP 116/68 (BP Location: Left arm, Patient Position (BP): Sitting, BP Cuff Size: Large Adult) Pulse 73 Temp 97.7 ??F (36.5 ??C) (Tympanic) Resp 18 Ht 5' 5 (1.651 m) Wt 98.9 kg (218 lb) SpO2 98% BMI 36.28 kg/m?? Blood Pressure BP Readings from Last 3 Encounters: 01/01/20 116/68 07/21/19 122/78 07/17/19 118/80 BMI POC (QM) Body mass index is 36.28 kg/m??. Normal BMI range: 18 & older: > or = 18.5 and < 25 Abnormal high BMI: Patient counseled on lifestyle modifications including weight loss and daily exercise. The 10-year CVD risk score (Sarah'Agostino, et al., 2008) is: 3% Values used to calculate the score: Age: 39 years Sex: Male Diabetic: No Tobacco smoker: No Systolic Blood Pressure: 116 mmHg Is BP treated: No HDL Cholesterol: 34 mg/dL Total Cholesterol: 156 mg/dL Consider Statins if 10 year risk >7.5-10% Tobacco Use (QM) reports that he has never smoked. He has never used smokeless tobacco. He is not a tobacco user. EXAMINATION REVIEW OF SYSTEMS Review of Systems Constitutional: Negative for chills, fever and malaise/fatigue. HENT: Negative for congestion and sinus pain. Respiratory: Negative for cough, shortness of breath and wheezing. Cardiovascular: Positive for chest pain. Negative for palpitations and leg swelling. Gastrointestinal: Negative for abdominal pain, constipation, diarrhea, nausea and vomiting. Musculoskeletal: Negative for myalgias. Neurological: Positive for dizziness. Negative for tingling, tremors, focal weakness and headaches. Psychiatric/Behavioral: Negative for depression. The patient is nervous/anxious. Objective PHYSICAL EXAM Physical Exam Constitutional: Appearance: He is well-developed. HENT: Head: Normocephalic and atraumatic. Right Ear: A middle ear effusion is present. Left Ear: Tympanic membrane and ear canal normal. Nose: Nose normal. Eyes: Conjunctiva/sclera: Conjunctivae normal. Neck: Thyroid: No thyroid mass, thyromegaly or thyroid tenderness. Vascular: No carotid bruit. Cardiovascular: Rate and Rhythm: Normal rate and regular rhythm. Heart sounds: Normal heart sounds, S1 normal and S2 normal. No murmur. No friction rub. No gallop. Pulmonary: Effort: Pulmonary effort is normal. No respiratory distress. Breath sounds: Normal breath sounds. No wheezing or rales. Abdominal: General: Abdomen is protuberant. Bowel sounds are normal. Palpations: Abdomen is soft. Tenderness: There is no abdominal tenderness. Hernia: No hernia is present. Lymphadenopathy: Cervical: No cervical adenopathy. Skin: General: Skin is warm and dry. Neurological: Mental Status: He is alert and oriented to person, place, and time. Results for orders placed or performed in visit on 01/01/20 (from the past 24 hour(s)) POC GLUCOSE Result Value Ref Range POC GLUCOSE 105 (A) 74 - 99 mg/dL EKG 12-LEAD Date/Time: 01/01/2020 3:28 PM Performed by: Kristen Vela NP Authorized by: Kristen Vela NP Comparison: compared with previous ECG from 07/17/2019 Similar to previous ECG Rhythm: sinus rhythm Rate: normal QRS axis: normal Conduction: conduction normal ST Segments: ST segments normal T Waves: T waves normal Clinical impression: normal ECG ASSESSMENT and PLAN: Marcelo was seen today for dizziness. Diagnoses and all orders for this visit: Chest pressure - EKG 12-LEAD - ECHO STRESS TEST EXERCISE; Future Family history of diabetes mellitus in father - HEMOGLOBIN A1C; Future - POC GLUCOSE - HEMOGLOBIN A1C Dizziness - COMPREHENSIVE METABOLIC PANEL; Future - CBC WITH DIFFERENTIAL; Future - CBC WITH DIFFERENTIAL - COMPREHENSIVE METABOLIC PANEL Gastroesophageal reflux disease without esophagitis - esomeprazole (NexIUM) 40 mg Capsule, Delayed Release(E.C.); Take 1 Capsule (40 mg) by mouth dailybefore breakfast. ETD (Eustachian tube dysfunction), right - fluticasone propionate (FLONASE) 50 mcg/spray Coats, Suspension nasal inhaler; 2 sprays each nostril twice a day for 7-10 days. Chest pressure-EKG no change, normal. Echo stress test-given family hx of premature CAD, obesity, fleeting chest pressure. EKG: no change. Dizziness with ETD-Flonase. Labs today. Glucose normal. GERD-given information, need to lose wt, discussed. Nexium for relief. Diet changes recommended. Will recommend exercise after echo stress test. Suspect having anxiety contributing to symptoms given recent of father with hx of CAD. documented in this encounter Miscellaneous Notes * Patient Instructions - Kristen Vela NP - 01/01/2020 3:25 PM CDT Images from the original note were not included. Dizziness: Care Instructions Your Care Instructions Dizziness is the feeling of unsteadiness or fuzziness in your head. It is different than having vertigo, which is a feeling that the room is spinning or that you are moving or falling. It is also different from lightheadedness, which is the feeling that you are about to faint. It can be hard to know what causes dizziness. Some people feel dizzy when they have migraine headaches. Sometimes bouts of flu can make you feel dizzy. Some medical conditions, such as heart problemsor high blood pressure, can make you feel dizzy. Many medicines can cause dizziness, including medicines for high blood pressure, pain, or anxiety. If a medicine causes your symptoms, your doctor may recommend that you stop or change the medicine.If it is a problem with your heart, you may need medicine to help your heart work better. If there is no clear reason for your symptoms, your doctor may suggest watching and waiting for a while to see if the dizziness goes away on its own. Follow-up care is a juan part of your treatment and safety. Be sure to make and go to all appointments, and call your doctor if you are having problems. It's also a good idea to know your test resultsand keep a list of the medicines you take. How can you care for yourself at home? ?? If your doctor recommends or prescribes medicine, take it exactly as directed. Call your doctor if you think you are having a problem with your medicine. ?? Do not drive while you feel dizzy. ?? Try to prevent falls. Steps you can take include: ? Using nonskid mats, adding grab bars near the tub, and using night-lights. ? Clearing your home so that walkways are free of anything you might trip on. ? Letting family and friends know that you have been feeling dizzy. This will help them know how tohelp you. When should you call for help? [id number] anytime you think you may need emergency care. For example, call if: ?? You passed out (lost consciousness). ?? You have dizziness along with symptoms of a heart attack. These may include: ? Chest pain or pressure, or a strange feeling in the chest. ? Sweating. ? Shortness of breath. ? Nausea or vomiting. ? Pain, pressure, or a strange feeling in the back, neck, jaw, or upper belly or in one or both shoulders or arms. ? Lightheadedness or sudden weakness. ? A fast or irregular heartbeat. ?? You have symptoms of a stroke. These may include: ? Sudden numbness, tingling, weakness, or loss of movement in your face, arm, or leg, especially ononly one side of your body. ? Sudden vision changes. ? Sudden trouble speaking. ? Sudden confusion or trouble understanding simple statements. ? Sudden problems with walking or balance. ? A sudden, severe headache that is different from past headaches. Call your doctor now or seek immediate medical care if: ?? You feel dizzy and have a fever, headache, or ringing in your ears. ?? You have new or increased nausea and vomiting. ?? Your dizziness does not go away or comes back. Watch closely for changes in your health, and be sure to contact your doctor if: ?? You do not get better as expected. Where can you learn more? Go to https://www.[employer].net/patiented Enter Q823 in the search box to learn more about Dizziness: Care Instructions. Current as of: November 05, 2018?Content Version: 12.5 ?? [employer]. Care instructions adapted under license by your healthcare professional. If you have questions about a medical condition or this instruction, always ask your healthcare professional. These instructions may not represent the values of this healthcare organization. [employer] disclaims any warranty or liability for your use of this information. Gastroesophageal Reflux Disease (GERD): Care Instructions Your Care Instructions Gastroesophageal reflux disease (GERD) is the backward flow of stomach acid into the esophagus. Theesophagus is the tube that leads from your throat to your stomach. A one-way valve prevents the stomach acid from backing up into this tube. When you have GERD, this valve does not close tightly enough. This can also cause pain and swelling in your esophagus (esophagitis). If you have mild GERD symptoms including heartburn, you may be able to control the problem with antacids or fsya-wba-gyeymji medicine. Changing your diet and eating habits, such as not eating late atnight, losing weight, and making other lifestyle changes can also help reduce symptoms. Follow-up care is a juan part of your treatment and safety. Be sure to make and go to all appointments, and call your doctor if you are having problems. It's also a good idea to know your test resultsand keep a list of the medicines you take. How can you care for yourself at home? ?? Take your medicines exactly as prescribed. Call your doctor if you think you are having a problem with your medicine. ?? Your doctor may recommend gqww-zzy-ulxhxho medicine. For mild or occasional indigestion, antacids, such as Tums, Gaviscon, Mylanta, or Maalox, may help. Your doctor also may recommend kbvj-nru-mumpzev acid reducers, such as Pepcid AC (famotidine), Tagamet HB (cimetidine), or Prilosec (omeprazole). Read and follow all instructions on the label. If you use these medicines often, talk with your doctor. ?? Change your eating habits. ? It's best to eat several small meals instead of two or three large meals. ? After you eat, wait 2 to 3 hours before you lie down. ? Chocolate, mint, and alcohol can make GERD worse. ? Spicy foods, foods that have a lot of acid (like tomatoes and oranges), and coffee can make GERD symptoms worse in some people. If your symptoms are worse after you eat a certain food, you may wantto stop eating that food to see if your symptoms get better. ?? Do not smoke or chew tobacco. Smoking can make GERD worse. If you need help quitting, talk to your doctor about stop-smoking programs and medicines. These can increase your chances of quitting forgood. ?? If you have GERD symptoms at night, raise the head of your bed 6 to 8 inches by putting the frame on blocks or placing a foam wedge under the head of your mattress. (Adding extra pillows does not work.) ?? Do not wear tight clothing around your middle. ?? Lose weight if you need to. Losing just 5 to 10 pounds can help. When should you call for help? Call your doctor now or seek immediate medical care if: ?? You have new or different belly pain. ?? Your stools are black and tarlike or have streaks of blood. Watch closely for changes in your health, and be sure to contact your doctor if: ?? Your symptoms have not improved after 2 days. ?? Food seems to catch in your throat or chest. Where can you learn more? Go to https://www.[employer].net/patiented Enter T927 in the search box to learn more about Gastroesophageal Reflux Disease (GERD): Care Instructions. Current as of: December 22, 2018?Content Version: 12.5 ?? [employer]. Care instructions adapted under license by your healthcare professional. If you have questions about a medical condition or this instruction, always ask your healthcare professional. These instructions may not represent the values of this healthcare organization. [employer] disclaims any warranty or liability for your use of this information. documented in this encounter Plan of Treatment Not on file documented as of this encounter Procedures Procedure Name Priority Date/Time Associated Diagnosis Comments CBC WITH DIFFERENTIAL Routine 01/01/2020 2:11 PM CDT Dizziness HEMOGLOBIN A1C Routine 01/01/2020 2:11 PM CDT Family history of diabetes mellitus in father COMPREHENSIVE METABOLIC PANEL Routine 01/01/2020 2:11 PM CDT Dizziness POC GLUCOSE Routine 01/01/2020 2:10 PM CDT Family history of diabetes mellitus in father NV ECG ROUTINE ECG W/LEAST 12 LDS W/I&R Routine 01/01/2020 1:37 PM CDT Chest pressure documented in this encounter Results * CBC WITH DIFFERENTIAL (01/01/2020 2:11 PM CDT) WBC 6.0 3.4 - 10.8 x10E3/uL [facility] RBC 5.29 4.14 - 5.80 x10E6/uL [facility] HEMOGLOBIN 15.2 13.0 - 17.7 g/dL [facility] HEMATOCRIT 46.4 37.5 - 51.0 % [facility] MCV 88 79 - 97 fL [facility] MCH 28.7 26.6 - 33.0 pg [facility] MCHC 32.8 31.5 - 35.7 g/dL [facility] RDW 13.0 11.6 - 15.4 % [facility] PLATELETS 235 150 - 450 x10E3/uL [facility] NEUTROPHIL 53 Not Estab. % [facility] LYMPHOCYTES 36 Not Estab. % [facility] MONOCYTE 8 Not Estab. % [facility] EOSINOPHILS 2 Not Estab. % [facility] BASOPHILS 1 Not Estab. % [facility] NEUTROPHIL ABSOLUTE 3.1 1.4 - 7.0 x10E3/uL [facility] LYMPHOCYTE ABSOLUTE 2.2 0.7 - 3.1 x10E3/uL [facility] MONOCYTE ABSOLUTE 0.5 0.1 - 0.9 x10E3/uL [facility] EOSINOPHIL ABSOLUTE 0.1 0.0 - 0.4 x10E3/uL [facility] BASOPHILS ABSOLUTE 0.1 0.0 - 0.2 x10E3/uL [facility] IMMATURE GRANULOCYTES 0 Not Estab. % [facility] IMMATURE GRANULOCYTES ABSOLUTE 0.0 0.0 - 0.1 x10E3/uL [facility] Blood 01/01/2020 2:11 PM CDT 01/02/2020 Narrative [facility] - 01/03/2020 7:35 AM CDT Performed at: ??01 - [facility] ??[id number] Gynecological Assistant: Krishna Grimes PhD, Phone: ??[phone] Kristen Vela NP HEMATOLOGY GUERDA JON [facility] [phone] * COMPREHENSIVE METABOLIC PANEL (01/01/2020 2:11 PM CDT) GLUCOSE 92 65 - 99 mg/dL [facility] BUN 14 6 - 20 mg/dL [facility] CREATININE 0.95 0.76 - 1.27 mg/dL [facility] GFR 102 >59 mL/min/1.7 3 [facility] GFR, 118 >59 mL/min/1.7 3 [facility] BUN/CREAT RATIO 15 9 - 20 [facility] SODIUM 140 134 - 144 mmol/L [facility] POTASSIUM 4.3 3.5 - 5.2 mmol/L [facility] CHLORIDE 102 96 - 106 mmol/L [facility] CO2 23 20 - 29 mmol/L [facility] CALCIUM 9.3 8.7 - 10.2 mg/dL [facility] TOTAL PROTEIN 7.2 6.0 - 8.5 g/dL [facility] ALBUMIN 4.5 4.0 - 5.0 g/dL [facility] GLOBULIN 2.7 1.5 - 4.5 g/dL [facility] ALBUMIN/GLOBULIN RATIO 1.7 1.2 - 2.2 [facility] BILIRUBIN TOTAL 0.4 0.0 - 1.2 mg/dL [facility] ALKALINE PHOSPHATASE 57 39 - 117 IU/L [facility] AST 25 0 - 40 IU/L [facility] ALT 39 0 - 44 IU/L [facility] Blood 01/01/2020 2:11 PM CDT 01/02/2020 Narrative [facility] - 01/03/2020 7:35 AM CDT Performed at: ??01 - [facility] ??[id number] Gynecological Assistant: Krishna Grimes PhD, Phone: ??[phone] Kristen Vela NP CHEMISTRY ORDER PETAR Performing Organization Address [facility] Co de Phone Number [facility] [phone] * HEMOGLOBIN A1C (01/01/2020 2:11 PM CDT) HEMOGLOBIN A1C 5.0 4.8 - 5.6 % [facility] Comment: ? Prediabetes: 5.7 - 6.4 ? Diabetes: >6.4 ? Glycemic control for adults with diabetes: <7.0 Blood 01/01/2020 2:11 PM CDT 01/02/[address] [facility] - 01/03/2020 6:39 AM CDT Performed at: ??01 - [facility] ??[id number] Gynecological Assistant: Krishna Grimes PhD, Phone: ??[phone] Kristen Vela NP CHEMISTRY ORDER PETAR Performing Organization Address City/[facility]/ZIP Co de Phone Number [facility] [phone] * (ABNORMAL) POC GLUCOSE (01/01/2020 2:10 PM CDT) GLUCOSE POC 105(A) 74 - 99 mg/dL [facility] Blood, whole 01/01/2020 2:10 PM CDT Kristen Vela NP POINT OF CARE T ESTING [facility]# [id number] [address] [address] * [place] ECG ROUTINE ECG W/LEAST 12 LDS W/I&R (01/01/2020 1:37 PM CDT) Narrative [facility] - 01/01/2020 1:37 PM CDT Kristen Vela NP ? 01/01/2020 ??3:45 PM EKG 12-LEAD Date/Time: 01/01/2020 3:28 PM Performed by: Kristen Vela NP Authorized by: Kristen Vela NP Comparison: compared with previous ECG from 07/17/2019 Similar to previous ECG Rhythm: sinus rhythm Rate: normal QRS axis: normal Conduction: conduction normal ST Segments: ST segments normal T Waves: T waves normal Clinical impression: normal ECG Procedure Note Kristen Vela NP - 01/01/2020 1:37 PM CDT HISTORY OF PRESENT ILLNESS Marcelo Sampson is a 39 y.o. male who presents for Chief Complaint Patient presents with ? ? Dizziness For the past 3 weeks fleeting dizziness lasting a few seconds, unrelatedto activity, head turning. For the past 3 weeks has had a different feeling to his anterior chest.Random, lasts few seconds. Father (1 month ago) from CHF, CAD-did not live to have coronarybypass surgery. Family hx of CAD in father, uncle. Father was 59 yrs oldand diabetic. Denies ear pain, issues. Denies chest pain, SOB, sweating, nausea. Hasbeen under stress and anxious. Frequent episodes after almost all meals of acid reflux. Admits he feelshe needs to lose wt. Past Medical History: Diagnosis Date ? ? Patient denies relevant medical history Current Outpatient Medications Medication Sig Dispense Refill ? ? fluticasone propionate (FLONASE) 50 mcg/spray Coats, Suspension nasalinhaler 2 sprays each nostril twice a day for 7-10 days. 16 Gram 0 ? ? esomeprazole (NexIUM) 40 mg Capsule, Delayed Release(E.C.) Take 1Capsule (40 mg) by mouth daily before breakfast. 30 Capsule 6 No current facility-administered medications for this visit. No Known Allergies BP 116/68 (BP Location: Left arm, Patient Position (BP): Sitting, BP CuffSize: Large Adult) Pulse 73 Temp 97.7 ??F (36.5 ??C) (Tympanic) Resp 18 Ht 5' 5 (1.651 m) Wt 98.9 kg (218 lb) SpO2 98% BMI36.28 kg/m?? MEDICAL RECORD UPDATE Past Medical History: [...] were reviewed and updated incomputerized patient record. [facility] [address] [place] [address] Providers: Patient Care Team: Jt Vazquez MD as PCP - General (Family Practice) No Patient Care Coordination Note on file. Vital signs/Tobacco use BP 116/68 (BP Location: Left arm, Patient Position (BP): Sitting, BP CuffSize: Large Adult) Pulse 73 Temp 97.7 ??F (36.5 ??C) (Tympanic) Resp 18 Ht 5' 5 (1.651 m) Wt 98.9 kg (218 lb) SpO2 98% BMI36.28 kg/m?? Blood Pressure BP Readings from Last 3 Encounters: 01/01/20 116/68 07/21/19 122/78 07/17/19 118/80 BMI POC (QM) Body mass index is 36.28 kg/m??. Normal BMI range: 18 & older: > or = 18.5 and < 25 Abnormal high BMI: Patient counseled onlifestyle modifications including weight loss and daily exercise. The 10-year CVD risk score (Zehra, et al., 2008) is: 3% Values used to calculate the score: Age: 39 years Sex: Male Diabetic: No Tobacco smoker: No Systolic Blood Pressure: 116 mmHg Is BP treated: No HDL Cholesterol: 34 mg/dL Total Cholesterol: 156 mg/dL Consider Statins if 10 year risk >7.5-10% Tobacco Use (QM) reports that he has never smoked. He has never used smokeless tobacco. He is not a tobacco user. EXAMINATION REVIEW OF SYSTEMS Review of Systems Constitutional: Negative for chills, fever and malaise/fatigue. HENT: Negative for congestion and sinus pain. Respiratory: Negative for cough, shortness of breath and wheezing. Cardiovascular: Positive for chest pain. Negative for palpitations and legswelling. Gastrointestinal: Negative for abdominal pain, constipation, diarrhea,nausea and vomiting. Musculoskeletal: Negative for myalgias. Neurological: Positive for dizziness. Negative for tingling, tremors,focal weakness and headaches. Psychiatric/Behavioral: Negative for depression. The patient isnervous/anxious. Objective PHYSICAL EXAM Physical Exam Constitutional: Appearance: He is well-developed. HENT: Head: Normocephalic and atraumatic. Right Ear: A middle ear effusion is present. Left Ear: Tympanic membrane and ear canal normal. Nose: Nose normal. Eyes: Conjunctiva/sclera: Conjunctivae normal. Neck: Thyroid: No thyroid mass, thyromegaly or thyroid tenderness. Vascular: No carotid bruit. Cardiovascular: Rate and Rhythm: Normal rate and regular rhythm. Heart sounds: Normal heart sounds, S1 normal and S2 normal. No murmur.No friction rub. No gallop. Pulmonary: Effort: Pulmonary effort is normal. No respiratory distress. Breath sounds: Normal breath sounds. No wheezing or rales. Abdominal: General: Abdomen is protuberant. Bowel sounds are normal. Palpations: Abdomen is soft. Tenderness: There is no abdominal tenderness. Hernia: No hernia is present. Lymphadenopathy: Cervical: No cervical adenopathy. Skin: General: Skin is warm and dry. Neurological: Mental Status: He is alert and oriented to person, place, and time. Results for orders placed or performed in visit on 01/01/20 (from the past24 hour(s)) POC GLUCOSE Result Value Ref Range POC GLUCOSE 105 (A) 74 - 99 mg/dL EKG 12-LEAD Date/Time: 01/01/2020 3:28 PM Performed by: Kristen Vela NP Authorized by: Kristen Vela NP Comparison: compared with previous ECG from 07/17/2019 Similar to previous ECG Rhythm: sinus rhythm Rate: normal QRS axis: normal Conduction: conduction normal ST Segments: ST segments normal T Waves: T waves normal Clinical impression: normal ECG ASSESSMENT and PLAN: Marcelo was seen today for dizziness. Diagnoses and all orders for this visit: Chest pressure - EKG 12-LEAD - ECHO STRESS TEST EXERCISE; Future Family history of diabetes mellitus in father - HEMOGLOBIN A1C; Future - POC GLUCOSE - HEMOGLOBIN A1C Dizziness - COMPREHENSIVE METABOLIC PANEL; Future - CBC WITH DIFFERENTIAL; Future - CBC WITH DIFFERENTIAL - COMPREHENSIVE METABOLIC PANEL Gastroesophageal reflux disease without esophagitis - esomeprazole (NexIUM) 40 mg Capsule, Delayed Release(E.C.); Take 1Capsule (40 mg) by mouth daily before breakfast. ETD (Eustachian tube dysfunction), right - fluticasone propionate (FLONASE) 50 mcg/spray Coats, Suspensionnasal inhaler; 2 sprays each nostril twice a day for 7-10 days. Chest pressure-EKG no change, normal. Echo stress test-given family hx of premature CAD, obesity, fleeting chestpressure. EKG: no change. Dizziness with ETD-Flonase. Labs today. Glucose normal. GERD-given information, need to lose wt, discussed. Nexium for relief.Diet changes recommended. Will recommend exercise after echo stress test. Suspect having anxiety contributing to symptoms given recent offather with hx of CAD. Kristen Vela NP ECG ORDERABLES [facility]# [id number] [address] [place] [address] documented in this encounter Visit Diagnoses Diagnosis Chest pressure- Primary Other chest pain Family history of diabetes mellitus in father Dizziness Dizziness and giddiness Gastroesophageal reflux disease without esophagitis Esophageal reflux ETD (Eustachian tube dysfunction), right documented in this encounter Care Teams Operations Support Professionals Relationship Specialty Start Date End Date Jt Vazquez MD PCP - General Family Practice 12/20/17 08/20/21 documented as of this encounter
--- OUTSIDE RECORDS SUMMARY | 2024-05-19 16:56 | XMS_ITS | Encounter Summary ---
Author Organization [facility] Address [address] [facility] Attn: Epic Prelude ADT CEDRIC GARCIA [address] Care Team Providers Care Wind Commissioning Technician Name Role Phone Jt Vazquez MD Primary Care Provider Unava ilable Encounter Details Date Type Department Care Team (Latest Contact Info) Description 11/02/2020 Travel Social History Tobacco Use Types Packs/Day [...] have Coronavirus / COVID-19? No / Unsure 11/02/2020 8:19 AM CDT documented as of this encounter Plan of Treatment Not on file documented as of this encounter Visit Diagnoses Not on filedocumented in this encounter Care Teams Wind Commissioning Technician Relationship Specialty Start Date End Date Jt Vazquez MD PCP - General Family Practice 12/20/17 08/20/21 documented as of this encounter
--- OUTSIDE RECORDS SUMMARY | 2024-05-19 16:56 | XMS_ITS | Encounter Summary ---
Author Organization [facility] Address [address] [place] [address] Care Team Providers Care Inspector Balance Truing Name Role Phone Katerina Eng MD Primary Care Provider [phone] Encounter Details Date Type Department Care Team (Late st Contact Info) Description 08/28/2022 Orders Only [facility] CoNarrative [place] [address] [place] [address] [place] Screening for condition Social History Tobacco Use Types Packs/Day Years Used Date Smoking Tobacco: Never Smokeless Tobacco: Never Alcohol Use Standard Drinks/Week Comments Yes 3 (1 standard drink = 0.6 oz pur e alcohol) occasional Sex and Gender Information Value Date Recorded Sex Assigned at Not on file Gender Identity Not on file Sexual Orientation Not on file documented as of this encounter Miscellaneous Notes * Result Encounter Note - Thania Corley - 08/30/2022 9:04 AM CDT Spoke to pt giving him this information, pt scheduled a follow up to discuss 09/05 at 8:00 AM * Result Encounter Note - Poonam Gan FNP - 08/30/2022 7:55 AM CDT Marcelo- You annual wellness screening labs have been reviewed. > Your TSH and lipid panel are abnormal. Please make an appointment (ok to be virtual) to further discuss. CMP and CBC are within normal limits. Poonam Rivas NP documented in this encounter Plan of Treatment Not on file documented as of this encounter Procedures Procedure Name Priority Date/Time Associated Diagnosis Comments CBC WITH DIFFERENTIAL Routine 08/28/2022 7:46 AM CDT Screening for condition TSH Routine 08/28/2022 7:46 AM CDT Screening for condition LIPID PANEL Routine 08/28/2022 7:46 AM CDT Screening for condition COMPREHENSIVE METABOLIC PANEL Routine 08/28/2022 7:46 AM CDT Screening for condition documented in this encounter Results * CBC WITH DIFFERENTIAL (08/28/2022 7:46 AM CDT) WBC 5.2 3.8 - 10.8 Thousand/u L [facility] RBC 5.22 4.20 - 5.80 Million/uL [facility] HEMOGLOBIN 15.3 13.2 - 17.1 g/dL [facility] HEMATOCRIT 45.7 38.5 - 50.0 % [facility] MCV 87.5 80.0 - 100.0 fL [facility] MCH 29.3 27.0 - 33.0 pg [facility] MCHC 33.5 32.0 - 36.0 g/dL [facility] RDW 13.0 11.0 - 15.0 % [facility] PLATELETS 217 140 - 400 Thousand/u L [facility] MPV 10.0 7.5 - 12.5 fL [facility] NEUTROPHIL ABSOLUTE 2,517 1,500 - 7,800 cells/uL [facility] LYMPHOCYTE ABSOLUTE 2,111 850 - 3,900 cells/uL [facility] MONOCYTE ABSOLUTE 369 200 - 950 cells/uL [facility] EOSINOPHIL ABSOLUTE 151 15 - 500 cells/uL [facility] BASOPHILS ABSOLUTE 52 0 - 200 cells/uL [facility] NEUTROPHIL 48.4 % [facility] LYMPHOCYTES 40.6 % [facility] MONOCYTE 7.1 % [facility] EOSINOPHILS 2.9 % [facility] BASOPHILS 1.0 % [facility] Comment: Test Performed at: [address] [employer] [address] [place], [place] ??[phone] Nicolas Perla MD Blood 08/28/2022 7:46 AM CDT 08/29/2022 4:03 AM CDT Poonam Gan [facility] HEMATOLOGY ORD ERABLES [facility] [phone] [facility] [address] [place] [address] * COMPREHENSIVE METABOLIC PANEL (08/28/2022 7:46 AM CDT) GLUCOSE 91 65 - 99 mg/dL [facility] Comment: ? Fasting reference interval BUN 14 7 - 25 mg/dL [facility] CREATININE 0.98 0.60 - 1.29 mg/dL [facility] GFR 100 > OR = 60 mL/min/1. 73m2 [facility] Comment: The eGFR is based on the CKD-EPI 2020 equation. To calculate the new eGFR from a previous Creatinine or Cystatin C result, go to https://www.kidney.org/professionals/ kdoqi/gfr%5Fcalculator BUN/CREAT RATIO NOT APPLICABLE 6 - 22 (calc) [facility] SODIUM 139 135 - 146 mmol/L [facility] POTASSIUM 4.6 3.5 - 5.3 mmol/L [facility] CHLORIDE 104 98 - 110 mmol/L [facility] CO2 28 20 - 32 mmol/L [facility] CALCIUM 9.3 8.6 - 10.3 mg/dL [facility] TOTAL PROTEIN 7.0 6.1 - 8.1 g/dL [facility] ALBUMIN 4.4 3.6 - 5.1 g/dL [facility] GLOBULIN 2.6 1.9 - 3.7 g/dL (calc) [facility] ALBUMIN/GLOBULI N RATIO 1.7 1.0 - 2.5 (calc) [facility] BILIRUBIN TOTAL 0.6 0.2 - 1.2 mg/dL [facility] ALKALINE PHOSPHATASE 57 36 - 130 U/L [facility] AST 20 10 - 40 U/L [facility] ALT 24 9 - 46 U/L [facility] Comment: Test Performed at: [facility] [address] [place] ??[phone] Nicolas Perla MD Blood 08/28/2022 7:46 AM CDT 08/29/2022 4:03 AM CDT Poonam Gan [facility] CHEMISTRY ORDE DANAY [facility] [phone] [facility] [address] [place] [address] * (ABNORMAL) LIPID PANEL (08/28/2022 7:46 AM CDT) CHOLESTEROL 144 <200 mg/dL [facility] HDL 34(L) > OR = 40 mg/dL [facility] TRIGLYCERIDE 270(H) <150 mg/dL [facility] Comment: If a non-fasting specimen was collected, consider repeat triglyceride testing on a fasting specimen if clinically indicated. Josefina et al. J. of Clin. Lipidol. 2015;9:129-169. LDL CALCULATED 74 mg/dL (calc) [facility] Comment: Reference range: <100 Desirable range <100 mg/dL for primary prevention; ?? <70 mg/dL for patients with CHD or diabetic patients with > or = 2 CHD risk factors. LDL-C is now calculated using the Krissy calculation, which is a validated novel method providing better accuracy than the Friedewald equation in the estimation of LDL-C. Vazquez MEYER et al. JAIME. 2013;310(19): 3875-8945 (http://education.Targeter App.Withings/faq/VMB366) CHOL/HDL RATIO 4.2 <5.0 (calc) [facility] TOTAL NON-HDL CHOL(LDL+VLDL) 110 <130 mg/dL (calc) [facility] Comment: For patients with diabetes plus 1 major ASCVD risk factor, treating to a non-HDL-C goal of <100 mg/dL (LDL-C of <70 mg/dL) is considered a therapeutic option. Test Performed at: [facility] [address] [facility] [place] ??[phone] Nicolas Perla MD Blood 08/28/2022 7:46 AM CDT 08/29/2022 4:03 AM CDT Poonam Gan [facility] CHEMISTRY ORDKacy JON Performing Organization Address City/[facility]/ZIP Co de Phone Number [facility] [phone] [facility] [address] [place] [address] * (ABNORMAL) TSH (08/28/2022 7:46 AM CDT) TSH 4.51(H) 0.40 - 4.50 mIU/L [facility] Comment: Test Performed at: [facility] [address] [facility] [place] ??[phone] Nicolas Perla MD Blood 08/28/2022 7:46 AM CDT 08/29/2022 4:03 AM CDT Poonam Gan [facility] CHEMISTRY ORDKacy JON [facility] [phone] [address] documented in this encounter Visit Diagnoses Diagnosis Screening for condition Screening for unspecified condition documented in this encounter Care Teams Inspector Balance Truing Relationship Specialty Start Date End Date Katerina Eng MD [address] [place] [address] PCP - General Family Practice 08/28/22 documented as of this encounter
--- OUTSIDE RECORDS SUMMARY | 2024-05-19 16:56 | XMS_ITS | Encounter Summary ---
Author Organization [facility] Address [address] [place] [address] Care Team Providers Care Electrical Controls Engineer Name Role Phone Jt Vazquez MD Primary Care Provider Unava ilable Reason for Visit * Reason Onset Date Comments Medication Review 02/03/2020 Encounter Details Date Type Department Care Team (Late st Contact Info) Description 02/03/2020 Telephone [facility] at [facility] [employer] [place] [address] [place] [phone] Jt Vaqzuez MD NO ADDRESS ON FILE Medication Review Social History Tobacco Use Types Packs/Day Years Used Date Smoking Tobacco: Never Smokeless Tobacco: Never Alcohol Use Standard Drinks/Week Comments Yes 0 (1 standard drink = 0.6 oz pur e alcohol) occasional Sex and Gender Information Value Date Recorded Sex Assigned at Not on file Gender Identity Not on file Sexual Orientation Not on file documented as of this encounter Miscellaneous Notes * Telephone Encounter - Tamie Enrique - 02/03/2020 11:17 AM CDT RETURNED TO STOCK: Esomeprazole 40mg #30. Filled 01/04/2020 and not picked up. documented in this encounter Plan of Treatment Not on file documented as of this encounter Visit Diagnoses Not on filedocumented in this encounter Care Teams Electrical Controls Engineer Relationship Specialty Start Date End Date Jt Vazquez MD PCP - General Family Practice 12/20/17 08/20/21 documented as of this encounter
--- OUTSIDE RECORDS SUMMARY | 2024-05-19 16:56 | XMS_ITS | Encounter Summary ---
Author Organization [facility] Address [address] [place] [address] Care Team Providers Care Core Baker Name Role Phone Jt Vazquez MD Primary Care Provider Unava ilable Reason for Visit * Reason Comments Cough Pt states that he kenney s been having a cough, chest congestion, and sinus drainage. Encounter Details Date Type Department Care Team (Late st Contact Info) Description 03/12/2018 10:40 AM CDT Office Visit [facility] at [facility] [employer] [address] [place] [phone] Kristen Vela, PARTNER [address] [facility] [address] [place] [address] Acute nasopharyngitis (common cold) (Primary Dx) Social History Tobacco Use Types [...] Reading Time Taken Comments Blood Pressure 116/76 03/12/2018 10:47 AM CDT Pulse 73 03/12/2018 10:47 AM CDT Temperature 36.3 ??C (97.4 ??F) 03/12/2018 10:47 AM C DT Respiratory Rate 18 03/12/2018 10:47 AM CDT Oxygen Saturation 96% 03/12/2018 10:47 AM CDT Inhaled Oxygen Concentration - - Weight 98.4 kg (217 lb) 03/12/2018 10:47 AM CDT Height 165.1 cm (5' 5 ) 03/12/2018 10:47 AM CDT Body Mass Index 36.11 03/12/2018 10:47 AM CDT documented in this encounter Progress Notes * Kristen Vela NP - 03/12/2018 11:04 AM CDT HISTORY OF PRESENT ILLNESS Marcelo Sam[place] is a 37 y.o. male who presents for Chief Complaint Patient presents with ??? Cough Pt states that he has been having a cough, chest congestion, and sinus drainage. Symptoms x 4 days. and son had same symptoms. No fevers. Aching, post nasal gtt, dry cough with chest burning upon coughing, ear pressure. Sore throat with cough. Denies chest pain, wheezing. Past Medical History: Diagnosis Date ??? Patient denies relevant medical history No current outpatient prescriptions on file. No current facility-administered medications for this visit. No Known Allergies BP 116/76 (BP Location: Left arm, Patient Position (BP): Sitting, BP Cuff Size: Large Adult) Pulse 73 Temp 97.4 ??F (36.3 ??C) (Tympanic) Resp 18 Ht 5' 5 (1.651 m) Wt 98.4 kg (217 lb) SpO2 96% BMI 36.11 kg/m?? MEDICAL RECORD UPDATE Past Medical History: [...] reviewed and updated in computerized patient record. [address] [facility] Care Providers: Patient Care Team: Jt Vazquez MD as PCP - General (Family Practice) No Patient Care Coordination Note on file. EXAMINATION BP 116/76 (BP Location: Left arm, Patient Position (BP): Sitting, BP Cuff Size: Large Adult) Pulse 73 Temp 97.4 ??F (36.3 ??C) (Tympanic) Resp 18 Ht 5' 5 (1.651 m) Wt 98.4 kg (217 lb) SpO2 96% BMI 36.11 kg/m?? Blood Pressure BP Readings from Last 3 Encounters: 03/12/18 116/76 12/26/17 116/76 12/20/17 108/80 BMI POC (QM) Body mass index is 36.11 kg/m??. Normal BMI range: 18 & older: > or = 18.5 and < 25 The 10-year CVD risk score (Sarah'Patrickino, et al., 2008) is: 2.2% Values used to calculate the score: Age: 37 years Sex: Male Diabetic: No Tobacco smoker: No Systolic Blood Pressure: 116 mmHg Is BP treated: No HDL Cholesterol: 31 mg/dL Total Cholesterol: 127 mg/dL Consider Statins if 10 year risk >7.5-10% REVIEW OF SYSTEMS Review of Systems Constitutional: Negative. HENT: Positive for congestion and ear pain. Negative for sinus pain and sore throat. Respiratory: Positive for cough. Cardiovascular: Positive for chest pain (burning with cough). Gastrointestinal: Negative. Genitourinary: Negative. Musculoskeletal: Positive for myalgias. Skin: Negative. Neurological: Negative. Objective PHYSICAL EXAM Physical Exam Constitutional: He is oriented to person, place, and time. He appears well- developed and well-nourished. HENT: Head: Normocephalic and atraumatic. Right Ear: Ear canal normal. A middle ear effusion is present. Left Ear: Ear canal normal. A middle ear effusion is present. Nose: Nose normal. Right sinus exhibits no maxillary sinus tenderness and no frontal sinus tenderness. Left sinus exhibits no maxillary sinus tenderness. Mouth/Throat: Uvula is midline. Posterior oropharyngeal edema and posterior oropharyngeal erythema present. No oropharyngeal exudate or tonsillar abscesses. Tonsils are 3+ on the right. Tonsils are 3+ on the left. No tonsillar exudate. Eyes: Conjunctivae and EOM are normal. Cardiovascular: Normal rate, regular rhythm, S1 normal, S2 normal and normal heart sounds. Exam reveals no gallop and no friction rub. No murmur heard. Pulmonary/Chest: Effort normal and breath sounds normal. No respiratory distress. He has no wheezes. He has no rales. Lymphadenopathy: He has no cervical adenopathy. Neurological: He is alert and oriented to person, place, and time. Skin: Skin is warm and dry. No rash noted. No results found for any visits on 03/12/18 (from the past 24 hour(s)). ASSESSMENT and PLAN: Marcelo was seen today for cough. Diagnoses and all orders for this visit: Acute nasopharyngitis (common cold) You have a virus causing your symptoms. Since it is not a bacterial infection, antibiotics will notbe helpful. To treat symptoms, you may take ibuprofen or tylenol for pain and fever unless you chose to take OTC combination cold medications. Viral illnesses can last 7-10 days. Viral illnesses can be spread to others by kissing, close contact, drinking after ill contacts. Follow up if not improved in 5-7 days, sooner if fevers or worsening of condition. documented in this encounter Plan of Treatment Not on file documented as of this encounter Visit Diagnoses Diagnosis Acute nasopharyngitis (common cold)- Primary documented in this encounter Care Teams Core Baker Relationship Specialty Start Date End Date Jt Vazquez MD PCP - General Family Practice 12/20/17 08/20/21 documented as of this encounter
--- OUTSIDE RECORDS SUMMARY | 2024-05-19 16:56 | XMS_ITS | Encounter Summary ---
Author Organization [facility] Address [address] [place] [address] Care Team Providers Care Beater Out Leveling Machine Name Role Phone Jt Vazquez MD Primary Care Provider Unava ilable Reason for Visit * Reason Comments Follow Up Encounter Details Date Type Department Care Team (Late st Contact Info) Description 11/02/2020 8:30 AM CDT Office Visit [facility] [address] [place] [phone] Jt Vazquez MD NO ADDRESS ON FILE Family history of diabetes mellitus in father (Primary Dx); Neuralgia; Screening for condition Social History Tobacco Use [...] Sign Reading Time Taken Comments Blood Pressure 122/86 11/02/2020 8:21 AM CDT Pulse 70 11/02/2020 8:21 AM CDT Temperature 36 ??C (96.8 ??F) 11/02/2020 8:21 AM CDT Respiratory Rate 18 11/02/2020 8:21 AM CDT Oxygen Saturation 95% 11/02/2020 8:21 AM CDT Inhaled Oxygen Concentration - - Weight 98 kg (216 lb) 11/02/2020 8:21 AM CDT Height 165.1 cm (5' 5 ) 11/02/2020 8:21 AM CDT Body Mass Index 35.94 11/02/2020 8:21 AM CDT documented in this encounter Progress Notes * Jt Vazquez MD - 11/02/2020 8:24 AM CDT HISTORY OF PRESENT ILLNESS Marcelo Sampson, a 40 y.o. male presents with a chief complaint of Chief Complaint Patient presents with ??? Follow Up Subjective HPI Mostly to follow after wellness. Family hx of diabtese and ehart disease. Patient likes to stay on top of it. Has recently cut out sugars and has been exercising. Also watches calories. recent valentenes results reviewed. Tobacco Intervention He is not a tobacco user. Depression Screen Positive: PHQ-2 score > 2 or PHQ-9 score > 9 Positive: PHQ-2 score >= 3 or PHQ-9 score >= 9 PHQ-2 Total: 0 (11/02/2020 8:00 AM) DEPRESSION PLAN OF CARE His depression screen was normal Blood Pressure BP Readings from Last 3 Encounters: 11/02/20 122/86 08/08/20 128/88 01/01/20 116/68 Normal BMI Range: 18 & older: > or = 18.5 and < 25 Body mass index is 35.94 kg/m??. Abnormal high BMI: Patient counseled on lifestyle modifications including weight loss and daily exercise. This medical record reflects the history of present illness as obtained by myself in discussion with the patient. ROS REVIEW OF SYSTEMS ROS: General: No fever, sweats, chills, weight loss or rapid weight gain. Eyes: Denies any eye irritation or change in vision. ENT: No ear pain or change in hearing. No rhinorrhea, dry mouth, sore throat or dysphagia. Cardiac: Denies any chest pain or palpitations. No peripheral edema. Respiratory: Denies shortness of breath, wheezing or cough. Abdominal: Denies abdominal pain, nausea, vomiting, diarrhea, constipation, melena or hematochezia.No significant reflux or dyspeptic symptoms. Genitourinary: No dysuria, polyuria, urinary frequency or other change in urinary habits. Musculoskeletal: Denies any unusual muscular or joint aches/pains. Neurological: neuralgia of bialterl hands c7. No severe headaches. Psychiatric: Moods are good. Denies anhedonia, irritability or anxiety. Coping well. Objective PHYSICAL EXAM Vitals: 11/02/20 0821 BP: 122/86 Pulse: 70 Resp: 18 Temp: 96.8 ??F (36 ??C) SpO2: 95% PHYSICAL EXAM: Alert and oriented. Well developed and nourished with neat grooming. No acute distress. BP 122/86 (BP Location: Left arm, Patient Position (BP): Sitting, BP Cuff Size: Large Adult) Pulse 70 Temp 96.8 ??F (36 ??C) (Tympanic) Resp 18 Ht 5' 5 (1.651 m) Wt 98 kg (216 lb) SpO2 95% BMI 35.94 kg/m?? EYES: Conjunctivae and lids within normal limits. PERRLA. EOMI. NECK: supple without any masses. Thyroid non-enlarged and non-tender. No carotid bruits. LUNGS: Respirations non-labored. Lungs clear to auscultation bilaterally. No rales or rhonchi. Normal air exchange. HEART: Regular without murmur, gallop, S3/S4 or rub. NEUROLOGICAL: Strength is 5/5 throughout. Sensory is intact to light touch throughout. Coordinationand gait are normal. Bilateral hands with full range of motion EXTREMITIES: Warm and dry without clubbing, cyanosis or edema. Well perfused. PSYCHIATRIC: Pleasant, smiling with a good affect and eye contact. No sign of any thought disorder or active hallucinations. Not withdrawn. Adequate insight. Not violent or inappropriate. Assessment ASSESSMENT AND PLAN ICD-10-CM ICD-9-CM 1. Family history of diabetes mellitus in father Z83.3 V18.0 2. Neuralgia M79.2 729.2 3. Screening for condition Z13.9 V82.9 HEMOGLOBIN A1C HEMOGLOBIN A1C Labs reviewd with patient. Will check a1c for definitive. Discussed numbness in hands/fingers. Will get mri if becomes persistent. Discussed possible - neck/arm/wrist as source. Discussed posisble treament meds vs surgery based on results of testing. Preventive health - nutrition changes and exercise. documented in this encounter Miscellaneous Notes * Result Encounter Note - Jt Vazquez MD - 11/03/2020 7:22 AM CDT Result received in InBasket documented in this encounter Plan of Treatment Not on file documented as of this encounter Procedures Procedure Name Priority Date/Time Associated Diagnosis Comments HEMOGLOBIN A1C Routine 11/02/2020 8:50 AM CDT Screening for condition documented in this encounter Results * HEMOGLOBIN A1C (11/02/2020 8:50 AM CDT) HEMOGLOBIN A1C 4.8 <5.7 % of total Hgb [facility] Comment: For the purpose of screening for the presence of diabetes: <5.7% ? Consistent with the absence of diabetes 5.7-6.4% ?Consistent with increased risk for diabetes ?(prediabetes) > or =6.5% ??Consistent with diabetes This assay result is consistent with a decreased risk of diabetes. Currently, no consensus exists regarding use of hemoglobin A1c for diagnosis of diabetes in children. According to [place] Diabetes Association (ADA) guidelines, hemoglobin A1c <7.0% represents optimal control in non- diabetic patients. Different metrics may apply to specific patient populations. Standards of Medical Care in Diabetes(ADA). Test Performed at: [facility] [address] [place], [place] ??[phone] Davian Vickers D.O., MPH Blood 11/02/2020 8:50 AM CDT Jt Vazquez MD CHEMISTRY ORDERABLES [facility] [address] [place] [address] documented in this encounter Visit Diagnoses Diagnosis Family history of diabetes mellitus in father- Primary Neuralgia Neuralgia, neuritis, and radiculitis, unspecified Screening for condition Screening for unspecified condition documented in this encounter Care Teams Beater Out Leveling Machine Relationship Specialty Start Date End Date Jt Vazquez MD PCP - General Family Practice 12/20/17 08/20/21 documented as of this encounter
--- OUTSIDE RECORDS SUMMARY | 2024-05-19 16:56 | XMS_ITS | Encounter Summary ---
Author Organization [facility] Address [address] [place] [address] Care Team Providers Care Foreign Car Mechanic Name Role Phone Katerina Eng MD Primary Care Provider [phone] Reason for Visit * Reason Onset Date Comments Appointment Verification 09/04/2022 Encounter Details Date Type Department Care Team (Late st Contact Info) Description 09/04/2022 Telephone [facility] [place] [address] [place] [address] Katerina Eng MD [address] [place] [phone] Appointment Verification Social History Tobacco Use Types Packs/Day Years [...] encounter Miscellaneous Notes * Telephone Encounter - Tamera Glez - 09/04/2022 1:39 PM CDT LVM with a reminder for patients upcoming appointment on 09/05/22 at 8:00 am at the [facility] wellness center. documented in this encounter Plan of Treatment Not on file documented as of this encounter Visit Diagnoses Not on filedocumented in this encounter Care Teams Foreign Car Mechanic Relationship Specialty Start Date End Date Katerina Eng MD [address] [place] [address] PCP - General Family Practice 08/28/22 documented as of this encounter
--- OUTSIDE RECORDS SUMMARY | 2024-05-19 16:56 | XMS_ITS | Encounter Summary ---
Author Organization [facility] Address [address] [place] [address] Care Team Providers Care Three Dimensional Art Instructor Name Role Phone Jt Vazquez MD Primary Care Provider Unava ilable Reason for Visit * Reason Comments Labs Only Encounter Details Date Type Department Care Team (Latest Contact Info) Description 08/08/2020 7:30 AM CDT Clinical Support [facility] [address] [place] [address] Screening for condition (Primary Dx) [...] Sign Reading Time Taken Comments Blood Pressure 128/88 08/08/2020 7:28 AM CDT Pulse - - Temperature - - Respiratory Rate - - Oxygen Saturation - - Inhaled Oxygen Concentration - - Weight 100.7 kg (222 lb) 08/08/2020 7:28 AM CDT Height 165.1 cm (5' 5 ) 08/08/2020 7:28 AM CDT Body Mass Index 36.94 08/08/2020 7:28 AM CDT documented in this encounter Progress Notes * Tamie Enrique - 08/08/2020 7:36 AM CDT Annual wellness screening fingerstick. Right hand, 3rd digit. Pt tolerated well. Pt educated on elevated triglycerides and blood glucose. Recommended follow up with repeat labs in three months. Pt verbalized understanding. LEIF Rizo documented in this encounter Plan of Treatment Not on file documented as of this encounter Procedures Procedure Name Priority Date/Time Associated Diagnosis Comments POC LIPID PANEL AND GLUCOSE Routine 08/08/2020 7:38 AM CDT documented in this encounter Results * (ABNORMAL) POC LIPID PANEL AND GLUCOSE (08/08/2020 7:38 AM CDT) CHOLESTEROL 165 200 mg/dL [facility] HDL 37(A) 40 - 59 mg/dL [facility] LDL CALCULATED 92 100 mg/dL [facility] TRIGLYCERIDE 179(A) 150 mg/dL [facility] NON-HDL CHOLESTEROL 0 130 mg/dL [facility] Comment:NA CHOL/HDL RATIO 4.5 [facility] GLUCOSE POC 107(A) 74 - 99 mg/dL [facility] Blood 08/08/2020 7:38 AM CDT Abstract Provider POINT OF CARE TESTIN G COM [facility] CLIA# [id number] [address] [place] [address] documented in this encounter Visit Diagnoses Diagnosis Screening for condition- Primary Screening for unspecified condition documented in this encounter Care Teams Three Dimensional Art Instructor Relationship Specialty Start Date End Date Jt Vazquez MD PCP - General Family Practice 12/20/17 08/20/21 documented as of this encounter
--- OUTSIDE RECORDS SUMMARY | 2024-05-19 16:56 | XMS_ITS | Encounter Summary ---
Author Organization [facility] Address [address] [place] [address] Care Team Providers Care Data Collection Associate Name Role Phone Jt Vazquez MD Primary Care Provider Unava ilable Reason for Visit * Reason Comments Mass Insect bite/Sting Tick bite Encounter Details Date Type Department Care Team (Late st Contact Info) Description 09/10/2018 8:30 AM CDT Office Visit [facility] [address] [place] [address] Jt Vazquez MD NO ADDRESS ON FILE Mucocele of lower lip (Primary Dx); Tick bite of buttock, initial encounter Social History Tobacco Use Types Packs/Day Years [...] Sign Reading Time Taken Comments Blood Pressure 120/82 09/10/2018 8:36 AM CDT Pulse 67 09/10/2018 8:36 AM CDT Temperature 36.2 ??C (97.1 ??F) 09/10/2018 8:36 AM CD T Respiratory Rate 18 09/10/2018 8:36 AM CDT Oxygen Saturation 97% 09/10/2018 8:36 AM CDT Inhaled Oxygen Concentration - - Weight 100.2 kg (221 lb) 09/10/2018 8:36 AM CDT Height 165.1 cm (5' 5 ) 09/10/2018 8:36 AM CDT Body Mass Index 36.78 09/10/2018 8:36 AM CDT documented in this encounter Progress Notes * Jt Vazquez MD - 09/10/2018 8:39 AM CDT Marcelo Sampson is a 38 y.o. male Chief Complaint/HPI: Chief Complaint Patient presents with ??? Mass ??? Insect bite/Sting Tick bite Tobacco Intervention He is not a tobacco user. Depression Screen PHQ-2 Total: 0 (09/10/18 0800) Positive: PHQ-2 score >= 2 or PHQ-9 score >= 9 PHQ-2 Total: 0 (09/10/2018 8:00 AM) DEPRESSION PLAN OF CARE His depression screen was normal Blood Pressure BP Readings from Last 3 Encounters: 09/10/18 120/82 03/12/18 116/76 12/26/17 116/76 Normal BMI Range: 18 & older: > or = 18.5 and < 25 Body mass index is 36.78 kg/m??. Abnormal high BMI: Patient counseled on lifestyle modifications including weight loss and daily exercise. This medical record reflects the history of present illness as obtained by myself in discussion with the patient. SUBJECTIVE: Here for above problems.initially here for lesion on lower lip that has been there for about one month. Just showed up. No injury or other. Has been able to squeeze some fluid out on couple of occasions. Otherwise stays flat and sl dry. No pain. Not bigger. Seems like smaller and better at this time. Also since here has tick bite area on left buttock. Getting better. Using drawing salve on it. ROS Review of Systems - History obtained from chart review and the patient General ROS: negative for weight changes, fever Psychological ROS: negative for anxiety or depressive symptoms Respiratory ROS: negative for cough, shortness of breath, or wheezing Cardiovascular ROS: negative for chest pain or dyspnea on exertion Dermatological ROS: as above Allergy and medication list reviewed and updated. [...] speech, dress, motor activity, and thought processes Eyes - pupils equal and reactive, extraocular eye movements intact Mouth - small 2 mm area lower lip appears dry and whiteish scab. No depth. No blister. No head. No draiange. No other lesions noted. Skin - small area left buttock with sl bulk and n head. [place] colored. No erythema. No draiange. ASSESSMENT AND PLAN: ICD-10-CM ICD-9-CM 1. 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 Tick bite of buttock, initial encounter S30.860A 911.4 W57.XXXA E906.4 Followup visit prn or changes documented in this encounter Miscellaneous Notes * Patient Instructions - Jt Vazquez MD - 09/10/2018 9:01 AM CDT An After Visit Summary was printed and given to the patient. Monitor lip Continue salve and monitor tick bite area documented in this encounter Plan of Treatment Not on file documented as of this encounter Visit Diagnoses Diagnosis Mucocele of lower lip- Primary Other and unspecified diseases of the oral soft tissues Tick bite of buttock, initial encounter documented in this encounter Care Teams Data Collection Associate Relationship Specialty Start Date End Date Jt Vazquez MD PCP - General Family Practice 12/20/17 08/20/21 documented as of this encounter
--- OUTSIDE RECORDS SUMMARY | 2024-05-19 16:57 | XMS_ITS | Encounter Summary ---
Author Organization [facility] Address [address] [place] [address] Care Team Providers Care Autism Tutor Name Role Phone Pamela Shukla APRN Primary Care Provider Reason for Visit * Reason Comments Rash red bumps on bilater al legs, was treated with antibiotics twice for lyme disease and the bumps keep coming back Encounter Details Date Type Department Care Team (Late st Contact Info) Description 02/12/2017 10:00 AM CDT Office Visit [facility] [place] [address] [place] [address] Pamela Shukla APRN [address] [place] [address] Rash (Primary Dx) Social History Tobacco Use [...] Sign Reading Time Taken Comments Blood Pressure 118/92 02/12/2017 10:05 AM CDT Pulse 68 02/12/2017 10:05 AM CDT Temperature 36.1 ??C (96.9 ??F) 02/12/2017 10:05 AM C DT Respiratory Rate 16 02/12/2017 10:05 AM CDT Oxygen Saturation 97% 02/12/2017 10:05 AM CDT Inhaled Oxygen Concentration - - Weight 98.9 kg (218 lb) 02/12/2017 10:05 AM CDT Height 165.1 cm (5' 5 ) 02/12/2017 10:05 AM CDT Body Mass Index 36.28 02/12/2017 10:05 AM CDT documented in this encounter Progress Notes * Pamela Shukla APRN - 02/12/2017 10:22 AM CDT Images from the original note were not included. Marcelo Sampson is a 36 y.o. male BP (!) 118/92 (BP Location: Left arm, Patient Position (BP): Sitting, BP Cuff Size: Large Adult) Pulse 68 Temp 96.9 ??F (36.1 ??C) (Tympanic) Resp 16 Ht 5' 5 (1.651 m) Wt 98.9 kg (218 lb) SpO2 97% BMI 36.28 kg/m2 SUBJECTIVE: Patient was here is October for a rash around waist and on his legs, mildly itchy. [place] in the [place] a great deal of the time. He was treated with doxycycline and the rash went away. Rash returned about 2-3 weeks later and he was seen near his home and treated for lyme's disease with a stronger abx (per patient report) and the rash went away and now he is returning with a recurrence of the rash that started this morning, mildly itching. OBJECTIVE: Physical Exam Constitutional: He is oriented to person, place, and time. He appears well- developed and well-nourished. Neck: Normal range of motion. Cardiovascular: Normal rate, regular rhythm and normal heart sounds. Pulmonary/Chest: Effort normal and breath sounds normal. Musculoskeletal: Normal range of motion. Neurological: He is alert and oriented to person, place, and time. Skin: Skin is warm and dry. Rash noted. Rash is macular. Vitals reviewed. ASSESSMENT: Rash PLAN: Will have lyme disease lab test done. Hydrocortisone cream to areas 2x/day. Return if not improving. documented in this encounter Plan of Treatment Not on file documented as of this encounter Procedures Procedure Name Priority Date/Time Associated Diagnosis Comments LYME ANTIBODY SCREEN W/REFLEX CONFIRMATION Routine 02/12/2017 10:24 AM CDT Rash documented in this encounter Results * LYME ANTIBODY SCREEN W/REFLEX WB (02/12/2017 10:24 AM CDT) LYME SCREEN IGM Negative 02/18/2017 10:53 AM CDT [facility] Comment:Performed by [facility] [employer], [address] [place] [address] LYME SCREEN IGG Negative 02/18/2017 10:53 AM CDT [facility] Comment:Performed by [facility] [employer], [address] [place] [address], [place] [address] Blood Venipuncture / Unknown 02/12/2017 10:24 AM CDT 02/12/2017 4:15 PM CDT Pamela Shukla APRN CHEMISTRY ORDER PETAR [facility] documented in this encounter Visit Diagnoses Diagnosis Rash- Primary Rash and other nonspecific skin eruption documented in this encounter Care Teams Autism Tutor Relationship Specialty Start Date End Date Pamela Shukla APRN PCP - General NURSE PRACTITIONER 02/12/17 12/19/17 documented as of this encounter
--- OUTSIDE RECORDS SUMMARY | 2024-05-19 16:57 | XMS_ITS | Encounter Summary ---
Author Organization [facility] Address [address] [place] [address] Care Team Providers Care Tunneling Machine Operator Name Role Phone Pamela Shukla APRN Primary Care Provider Encounter Details Date Type Department Care Team (Late st Contact Info) Description 02/12/2017 Orders Only [facility] [address] [place] [address] Provider, Abstract NO ADDRESS ON FILE Social [...] Procedure Name Priority Date/Time Associated Diagnosis Comments MISCELLANEOUS LAB TEST Routine 08/16/2016 documented in this encounter Results * MISCELLANEOUS LAB TEST (08/16/2016) Abstract Provider CHEMISTRY ORDERABLES [facility] CLIA# [id number] [address] [place] [address] [place] [address] documented in this encounter Visit Diagnoses Not on filedocumented in this encounter Care Teams Tunneling Machine Operator Relationship Specialty Start Date End Date Pamela Shukla APRN PCP - General NURSE PRACTITIONER 02/12/17 12/19/17 documented as of this encounter
== END 2024-05-12 14:20 | disposition home or self-care (01) ==
PROVIDERS: Emergency Provider Student in an Organized Health Care Education/Training Program
DX: R07.89 Other chest pain (principal); J98.4 Other disorders of lung
CPT/HCPCS: 36415; 71046; 71260; 80053; 83690; 84484; 85025; 85055; 85380; 85610; 85730; 93005; 99284; A9270; Q9967